=== PATIENT | female | born 1955 | race African-American/Black ===

== ENCOUNTER 2024-05-26 11:23 | Outpatient (CLI) | payer MEDICARE, MEDICAID, SELFPAY ==
--- NOTE | ~2024-05-26 | XR_ITS ---
XR abdomen/kub 1V Ordering provider: Cathy Washington, BIOMEDICAL INSTRUMENT TECHNICIAN History: . RIGHT URETERAL STONE . Comparison: None. FINDINGS: BOWEL: Nonobstructive bowel gas pattern. ORGANOMEGALY: None. SIGNIFICANT PATHOLOGIC CALCIFICATIONS: Right paraspinal calcification seen which may be a ureteric st one. OTHER: No free air is seen under the diaphragm. Degenerative changes of the spine. Bilateral hip osteoarthritic changes. IMPRESSION: NO ACUTE ABDOMINAL FINDINGS. Calcification in the right paraspinal area which may be a stone. Reviewed, dictated and finalized at location A.
== END 2024-05-26 11:24 | disposition home or self-care (01) ==
PROVIDERS: PCP Internal Medicine Infectious Disease; Visit Provider Nurse Practitioner Family
DX: N20.1 Calculus of ureter (principal); M61.9 Calcification and ossification of muscle, unspecified
CPT/HCPCS: 74018

== ENCOUNTER 2024-06-06 10:49 | Outpatient (CLI) | payer MEDICARE, MEDICAID, SELFPAY ==
--- NOTE | 2024-06-06 10:57 | ECG_ITS ---
Test Date: 2024-06-06 11:15:09 Measurements Intervals [place] Rate: 69 P: 34 WA: 176 QRS: 7 QRSD: 77 T: 32 QT: 378 QTc: 407 Interpretive Statements SINUS RHYTHM CONSIDER INFERIOR INFARCT, AGE INDETERMINATE BASELINE ARTIFACT- I, III, AVR, AVL, AVF ABNORMAL ECG No previous ECG available for comparison Electronically Signed On 06-06-2024 11:37:04 BREAKER TABLE WORKER by Tad Virk D.O.
[2024-06-06 12:18] LABS: Hematocrit 31.9 % (37.0-47.0); Hemoglobin 10.2 g/dL (12.0-15.0)
[2024-06-06 12:30] LABS: Prothrombin Time 13.4 Seconds (11.1-14.7)
[2024-06-06 12:31] LABS: Partial Thromboplastin Time 29.1 Seconds (22.3-36.8)
[2024-06-06 12:35] LABS: Anion Gap 7 mmol/L (4-12); Blood Urea Nitrogen 20 mg/dL (7-17); Calcium 8.9 mg/dL (8.4-10.2); Carbon Dioxide 30 mmol/L (22-30); Chloride 102 mmol/L (98-107); Estimated Glomerular Filt Rate 49; Glucose 81 mg/dL (65-110); Potassium 4.6 mmol/L (3.4-5.0); Sodium 139 mmol/L (137-145)
== END 2024-06-06 10:50 | disposition home or self-care (01) ==
LOC: ANHSURGERY 10:56
PROVIDERS: Anesthesiology; PCP Internal Medicine Infectious Disease; Visit Provider Urology
DX: Z01.818 Encounter for other preprocedural examination (principal); N20.1 Calculus of ureter; D64.9 Anemia, unspecified; I25.10 Atherosclerotic heart disease of native coronary artery without angina pectoris; Z87.891 Personal history of nicotine dependence; E10.22 Type 1 diabetes mellitus with diabetic chronic kidney disease
CPT/HCPCS: 36415; 80048; 85014; 85018; 85610; 85730; 87086; 93005

== ENCOUNTER 2024-06-10 02:03 | Day surgery (SDC) | payer MEDICARE, MEDICAID, SELFPAY ==
[2024-06-02 15:46] VITALS: BMI 30.2
--- NOTE | 2024-06-02 16:04 | PC.NURSE ---
Report to the Outpatient Waiting Room, entrance under the green pavilion located off [facility], at time __06:00am___on date _06/10/24 . Planned Procedure Time: _07:30am .? Time changes happen often and if your time is changed the preop area will call you the afternoon before. - You and your visitor will be asked to self-screen and do not enter if you have any COVID symptoms. Please call surgeon if you need to reschedule. - A mask is optional within the hospital at this time. Patients may have clear liquids (water, carbonated beverages, clear teas, apple juice) until 3 hours prior to surgery with a maximum of 20 ounces. - No food from midnight until time of surgery and no smoking (0430am) - Take only the following medications with a SIP of water on the morning of surgery: _Tylenol w Codeine if needed DO NOT STOP ANY OF YOUR OTHER PRESCRIPTION MEDICATIONS PRIOR TO SURGERY EXCEPT THE FOLLOWING Medications to discontinue per physician Hold Aspirin and the Plavix for [address] Shore Date to take last dose__06/01/24 Hold all vitamins and supplements 3 days prior per Anesthesia. Date to take last dose- 06/06/24 Please no make-up, nail arabic, hairspray, perfume, deodorant, or body powder the day of surgery.? No jewelry (including any body piercings) or valuables the day of surgery, leave them at home.? Please take a shower or bath the night before, or the morning of, surgery with an antibacterial soap.? Wear comfortable, loose fitting clothing.? - Jewelry must be removed prior to entering the operating room.? Rings and piercings that are not removed may be cut off. - The hospital will not accept responsibility for valuables.? - Please leave all valuables, including medications, at home the day of surgery. If you are going home after surgery, a licensed batch mixing truck driver must drive you home.? - NO public transportation without another adult if you receive anesthesia. - We recommend that an adult stay with you for 24 hours following discharge. - We also recommend that you do not drive, make important decision, drink alcoholic beverages, or take any drugs that were not prescribed by your health care provider for at least 24 hours after your discharge time. Follow any additional instructions given to you from your surgeon. Telephone instructions given to __Patient and asked if any additional questions and then verbalized understanding. Patient advised to call surgeon office or pre surgery nurse liaison [phone] if any additional questions.
--- NOTE | 2024-06-09 12:39 | P.HP_ITS ---
History of Present Illness History of Present Illness Consent: Risks, benefits, and alternatives have been discussed and questions answered. Patient agrees to proceed with procedure. Chief complaint: right ureteral stone Narrative: Belle Rivera is a 68 year old female Recently underwent evaluation for sterile pyuria. CT abd/pelvis wo contrast revealed a 1cm right renal calculus without other identifiable upper tract pathology Review of Systems Review of Systems: All systems reviewed & are unremarkable except as noted in HPI and below PMFSH Social History Social History Smoking packs per day: 2 Smoking cigarettes per day: 40.0 Years smoked: 30 Smoking pack-years: 60.00 Smoking status: Former smoker Smoking end date: 08/03/15 Substance use: never Living arrangements: with family Spiritual care concerns: No Meds Home Medications and Allergies Home Medications Medication Instructions Recorded Confirmed Type acetaminophen 300 mg-codeine 30 mg 1 tablet PO PRN PRN Pain 06/02/24 06/02/24 History tablet aspirin 81 mg tablet,delayed 81 mg PO HS 06/02/24 06/02/24 History release atorvastatin 20 mg tablet 20 mg PO HS 06/02/24 06/02/24 History chlorthalidone 25 mg tablet 12.5 mg PO HS 06/02/24 06/02/24 History clopidogrel 75 mg tablet 75 mg PO HS 06/02/24 06/02/24 History dapagliflozin propanediol 10 mg 10 mg PO HS 06/02/24 06/02/24 History tablet (Farxiga) diclofenac sodium 0.1 % eye drops 1 drp ophthalmic (eye) TID 06/02/24 06/02/24 History ferrous sulfate 324 mg (65 mg 324 mg PO HS 06/02/24 06/02/24 History iron) tablet,delayed release metformin 500 mg tablet 500 mg PO BID 06/02/24 06/02/24 History metoprolol succinate 25 mg 25 mg PO HS 06/02/24 06/02/24 History tablet,extended release 24 hr pantoprazole 40 mg tablet,delayed 40 mg PO DAILY 06/02/24 06/02/24 History release semaglutide 1 mg/dose (4 mg/3 mL) 1 mg subcut WEEKLY 06/02/24 06/02/24 History subcutaneous pen injector (Ozempic) vit D3-folic acid-vit B2-B6-B12 1 tablet PO HS 06/02/24 06/02/24 History 2,000 unit-800 mcg-0.32 mg tablet Allergies Allergy/AdvReac Type Severity Reaction Status Date / Time No Known Allergies Allergy Mild Verified 06/02/24 15:32 Exam Const: General: no acute distress Resp: Effort & Inspection: normal respiratory effort GI: Inspection: non-distended GI Palp: No abdominal tenderness and No Guarding due to palpation present (GI) Auscultation: normal bowel sounds Assessment and Plan Assessment and plan (1) Right renal stone: Code(s): N20.0 - Calculus of kidney Status: Acute Assessment and Plan: * Cystoscopy, right ureteral stent placement, right ESWL
[2024-06-10] VITALS (8 sets, daily range): BP systolic 136–168; BP diastolic 51–99; PULSE 67–86; RESP 12–18; TEMP 36.1–36.3; O2SAT 98–100; BMI 30.4
--- NOTE | ~2024-06-10 | XR_ITS ---
Supine and upright views of the abdomen Clinical history: Lithotripsy COMPARISON: 05/26/2024 Findings: Bowel gas pattern is nonspecific. No evidence for obstruction or free air. Stable 12 mm ovo id calcification in the right mid abdomen at the level of L5. Additional calcified pelvic phleboliths are present. Osseous structures are intact. Impression: Stable possible 12 mm right ureteral stone versus other calcification. Reviewed, dictated and finalized at location . LY MANAGER Impression: Stable possible 12 mm right ureteral stone versus other calcification.
[2024-06-10 06:30] LABS: Glucose Point of Care 61 mg/dl (65-105)
[2024-06-10] MEDS: LACTATED RINGERS 1,000 ML 30 ML IV CONT (06:30)
[2024-06-10] MEDS: DEXTROSE 50% 25 GM/50 ML SYRINGE IV PUSH (06:40)
--- NOTE | 2024-06-10 06:41 | WPDHPUPDATE1 ---
History and Physical Update Update Date/Time: 06/10/24 06:41 History and Physical has been reviewed, including an updated exam of the patient. There are NO changes in the patient's condition. Risks, benefits, and alternatives have been discussed and questions answered. Patient agrees to proceed with procedure.
--- NOTE | 2024-06-10 06:42 | WPDHPUPDATE1 ---
History and Physical Update Update Date/Time: 06/10/24 06:42 History and Physical has been reviewed, including an updated exam of the patient. There are NO changes in the patient's condition. Risks, benefits, and alternatives have been discussed and questions answered. Patient agrees to proceed with procedure.
--- NOTE | 2024-06-10 06:53 | P.PNAN_ITS ---
Anes - Initial Pre Proc Eval Procedure: Operation Date: 06/10/24 07:30 Proposed Procedures p Right Extracorporeal Shock Wave Lithotripsy, - Ziyad Shore MD s Cystoscopy with Right Stent Insertion - Ziyad Shore MD Date/Time: 06/10/24 06:53 Surgeon: Ziyad Shore MD Pre Op Diagnosis: right ureteral stone Patient Data Age: 68 Gender: F Height: 1.68 m Weight: 85 kg Allergies Allergy/AdvReac Type Severity Reaction Status Date / Time No Known Allergies Allergy Mild Verified 06/02/24 15:32 Home Medications Medication Instructions Recorded Confirmed Type acetaminophen 300 mg-codeine 30 mg 1 tablet PO PRN PRN Pain 06/02/24 06/02/24 History tablet aspirin 81 mg tablet,delayed 81 mg PO HS 06/02/24 06/02/24 History release atorvastatin 20 mg tablet 20 mg PO HS 06/02/24 06/02/24 History chlorthalidone 25 mg tablet 12.5 mg PO HS 06/02/24 06/02/24 History clopidogrel 75 mg tablet 75 mg PO HS 06/02/24 06/02/24 History dapagliflozin propanediol 10 mg 10 mg PO HS 06/02/24 06/02/24 History tablet (Farxiga) diclofenac sodium 0.1 % eye drops 1 drp ophthalmic (eye) TID 06/02/24 06/02/24 History ferrous sulfate 324 mg (65 mg 324 mg PO HS 06/02/24 06/02/24 History iron) tablet,delayed release metformin 500 mg tablet 500 mg PO BID 06/02/24 06/02/24 History metoprolol succinate 25 mg 25 mg PO HS 06/02/24 06/02/24 History tablet,extended release 24 hr pantoprazole 40 mg tablet,delayed 40 mg PO DAILY 06/02/24 06/02/24 History release semaglutide 1 mg/dose (4 mg/3 mL) 1 mg subcut WEEKLY 06/02/24 06/02/24 History subcutaneous pen injector (Ozempic) vit D3-folic acid-vit B2-B6-B12 1 tablet PO HS 06/02/24 06/02/24 History 2,000 unit-800 mcg-0.32 mg tablet Laboratory Tests 06/10/24 06:27 POC Capillary Glucose 61 L mg/dl (65-105) Patient hx anesthesia problems: none Family hx anesthesia problems: none Results Review: All pre-operative results and documents have been reviewed as part of the pre- operative evaluation. PENDING SALE TO [facility] Social History Social History Smoking packs per day: 2 Smoking cigarettes per day: 40.0 Years smoked: 30 Smoking pack-years: 60.00 Smoking status: Former smoker Smoking end date: 08/03/15 Substance use: never Living arrangements: with family Spiritual care concerns: No Anes - Eval Final PreProcedure Day of Procedure 06/10/24 06:53 Patient weight: obese Heart: regular rate and rhythm Lungs: clear to auscultation Airway: Mallampati scale class II Neurological: alert and oriented Last oral intake: >/= 8 hours ASA classification: III Emergent: no Anesthetic plan: proceed Anesthesia type and monitoring: general LMA and standard monitoring Results Review: All pre-operative results and documents have been reviewed as part of the pre- operative evaluation. Informed Consent: The patient's anesthetic plan and its attendant risks and benefits were discussed with the patient/family/POA. Questions were solicited and answers provided to the satisfaction of the patient/family/POA.
[2024-06-10 07:10] LABS: Glucose Point of Care 110 mg/dl (65-105)
[2024-06-10] MEDS: ceFAZolin 2 GM/D5W 50 ML 2 GM/50 ML BAG IVPB (07:25)
[2024-06-10] MEDS: LIDOCAINE HCL 2% GEL UROJET 10 ML PKG MUCOUS MEM (07:59)
[2024-06-10 08:41] LABS: Glucose Point of Care 76 mg/dl (65-105)
--- NOTE | 2024-06-10 08:44 | P.OP_ITS ---
Procedure Note - Detailed Date of Procedure 06/10/24 Pre-op Diagnosis Right ureteral stone Post-op Diagnosis Same Procedure Performed Cystoscopy, right ureteral stent placement, right ESWL Surgeon Ziyad Shore MD Anesthesia General Description of Procedure The patient was brought to the operative suite where she was placed in the frog- legged position on the Dornier lithotripter table. Flexible cystoscopy was undertaken with a 16F flexible cystoscopy. Her urethra and bladder neck were endoscopically normal. The bladder mucosa was normal and there was a single, orthotopic ureteral orifice bilaterally. A 0.035 glidewire was advanced into the right renal pelvis under fluoroscopy. A 4.8F J-J ureteral stent was positioned with the proximal coil in the renal pelvis and the distal coil in the bladder. The patient was then repositioned in the supine position and the focal point of the lithotriptor was placed at a 1cm right mid-ureteral calculus. A total of 3000 shocks were delivered at a power setting of 6. There appeared to be good fragmentation of the stone. The patient tolerated the procedure well and was taken to the recovery room in good condition. Pathology None sent Complications No immediate complications Condition Stable Disposition PACU
== END 2024-06-10 10:15 | disposition home or self-care (01) ==
PROVIDERS: PCP Internal Medicine Infectious Disease; Visit Provider Urology
PROC: (CPT 50590; principal; 2024-06-10 07:30)
PROC: (CPT 52310; 2024-06-10 07:30)
DX: N20.1 Calculus of ureter (principal); E66.9 Obesity, unspecified; Z68.30 Body mass index [BMI] 30.0-30.9, adult; Z79.82 Long term (current) use of aspirin; Z79.02 Long term (current) use of antithrombotics/antiplatelets; Z79.84 Long term (current) use of oral hypoglycemic drugs; Z79.85 Long-term (current) use of injectable non-insulin antidiabetic drugs; Z87.891 Personal history of nicotine dependence
CPT/HCPCS: 52332; 50590; 74018; 82948; C2617; J0690; J2003; J2405; J2704; J3010; J7120

== ENCOUNTER 2024-06-21 14:47 | Outpatient (CLI) | payer MEDICARE, MEDICAID, SELFPAY ==
--- NOTE | ~2024-06-21 | XR_ITS ---
EXAMINATION: XR abdomen/kub 1V DATE: 06/21/2024 14:58 INDICATION: Calculus of kidney. TECHNIQUE: A supine view of the abdomen on 2 radiographs was obtained. COMPARISON: Abdomen radiographs 06/10/2024 FINDINGS: There are no dilated loops of bowel. There is a right internal ureteral stent in expected p osition. There are surgical clips in the upper abdomen. The kidneys are obscured by bowel. There are phleboliths in the pelvis. IMPRESSION: 1. No visible urolithiasis. Reviewed, dictated and finalized at location A. SING ROOM ATTENDANT IMPRESSION: 1. No visible urolithiasis.
== END 2024-06-21 14:48 | disposition home or self-care (01) ==
PROVIDERS: PCP Internal Medicine Infectious Disease; Visit Provider Urology
DX: N20.1 Calculus of ureter (principal); Z96.0 Presence of urogenital implants; N20.0 Calculus of kidney
CPT/HCPCS: 74018

== ENCOUNTER 2024-07-06 10:27 | Outpatient (CLI) | payer MEDICARE, MEDICAID, SELFPAY ==
--- NOTE | ~2024-07-06 | XR_ITS ---
XR abdomen/kub 1V Ordering provider: Ziyad Shore MD History: . RT uretal stone . Comparison: June 21, 2024 FINDINGS: BOWEL: Nonobstructive bowel gas pattern. ORGANOMEGALY: None. SIGNIFICANT PATHOLOGIC CALCIFICATIONS: Calcific shadow seen in the right paraspinal area unchanged fr om previous examination. Previously seen double-J stent is removed. OTHER: No free air is seen under the diaphragm. Degenerative changes of the spine. Mild osteoarthriti c changes of both hips. IMPRESSION: NO ACUTE ABDOMINAL FINDINGS. Right paraspinal calcification unchanged from previous examination. Status post removal of the double -J stent. Reviewed, dictated and finalized at location A. ER MAN IMPRESSION: NO ACUTE ABDOMINAL FINDINGS. Right paraspinal calcification unchanged from previous examination. Status post removal of the double-J stent.
== END 2024-07-06 10:28 | disposition home or self-care (01) ==
PROVIDERS: PCP Internal Medicine Infectious Disease; Visit Provider Urology
DX: N20.1 Calculus of ureter (principal)
CPT/HCPCS: 74018

== ENCOUNTER 2025-01-03 08:26 | Outpatient (CLI) | payer MEDICARE, MEDICAID, SELFPAY ==
--- NOTE | ~2025-01-03 | MM_ITS ---
MM SCREENING LEORA BI W CON INDICATION: Asymptomatic, referred for screening mammogram COMPARISON: None available TECHNIQUE: Full field digital CC, MLO views of Both breasts were obtained with computer-aided detect ion to assist in interpretation of the study. FINDINGS: There are scattered areas of fibroglandular density. There is an asymmetry seen on the cc view in the retroareolar left breast centered at 8.2 cm posterio r to the nipple. No other focal dominant mass, architectural distortion, or suspicious microcalcifications are identif ied. IMPRESSION: 1. Left breast Asymmetry. 2. No evidence of malignancy in the Right breast. RECOMMENDATION: Left breast Diagnostic mammogram with true lateral, appropriate spot compression views and an ultraso und if needed. BI-RADS 0, INCOMPLETE, NEEDS ADDITIONAL IMAGING EVALUATION Reviewed, dictated and finalized at location B. IMPRESSION: 1. Left breast Asymmetry. 2. No evidence of malignancy in the Right breast. RECOMMENDATION: Left breast Diagnostic mammogram with true lateral, appropriate spot compressio n views and an ultrasound if needed. BI-RADS 0, INCOMPLETE, NEEDS ADDITIONAL IMAGING EVALUATION
== END 2025-01-03 08:27 | disposition home or self-care (01) ==
LOC: MICIMG 08:26
PROVIDERS: PCP Internal Medicine Infectious Disease; Visit Provider Internal Medicine Infectious Disease
DX: Z12.31 Encounter for screening mammogram for malignant neoplasm of breast (principal); R92.8 Other abnormal and inconclusive findings on diagnostic imaging of breast
CPT/HCPCS: 77063; 77067

== ENCOUNTER 2025-04-05 08:02 | Outpatient (CLI) | payer MEDICARE, MEDICAID, SELFPAY ==
--- OUTSIDE RECORDS SUMMARY | 2006-09-30 06:06 | XMS_ITS | Continuity of Care Document ---
Author Organization [facility] [place] [address] [place] [address] [place] [address] Phone Care Team Providers Care Electrical Service Technician Name Role Phone Graham OD, Toni Unavailable Unavailable Procedures Procedure Date No Charge Contact Lens Check CL Replacement - Vistakon Disp W/BW Soft Tax - Medical No Charge Contact Lens Check Advance Directives Directive Yes / No Effective Date File Name No Information Encounters Encounter Description Practice Location Reason(s) For Visit Diagnoses Date Provider Providers Copied on Encounter Merged with [facility], [address] [place] [address] [address], [place], [place], [id number], tel:[phone] [facility] No Information 8-200 7 Graham OD Toni. [address], [place], [address], [place]. tel:[phone] Merged with [facility], [address] [place] [address] [address], [place], [place], [id number], tel:[phone] [facility] No Information 7-200 7 Graham OD Toni. [address] [facility] [address], [place], [address], [place]. tel:[phone] Family History Family Member Type Diagnosis Age At Onset No Information Payers Payer name Insurance type Covered republican ID Authoriza tion(s) No Information Social History Type Description Quantity Date Captured Comments Sex Female Smoking Status No Information Chief Complaint And Reason For Visit No Information Reason For Referral Reason For Referral No Information History Of Present Illness Encounter Date Complaint History Of Prese nt Illness No Information Functional Status Date Functional Assessmen t No Information Instructions Date Instruction Additional Infor mation No Information Assessments Type Assessment Date No Information Patient Care Teams Name Effective Dates (start - stop) Status Members No Information
--- OUTSIDE RECORDS SUMMARY | 2025-04-05 08:06 | XMS_ITS | Clinical Summary ---
Author Organization [facility] , [facility] Address [address] [facility] [address] [place] [address] Phone Care Team Providers Care Material Liaison Name Role Phone Unavailable Primary Care Provider Unavailabl e Allergies No known active allergies Medications ASPIRIN 81 PO Take 1 tablet by mouth 1 (one) time each day Active atorvastatin (LIPITOR) 20 MG tablet Comments: Patient Notes: TAKE 1 TABLET BY MOUTH DAILY Duration: 90 Active chlorthalidone 25 MG tablet Take 0.5 tablets by mouth 1 (one) time each day 05/05/2017 Active Cholecalciferol 50 MCG (2000 UT) capsule Take 1 capsule by mouth 1 (one) time each day 06/05/2020 Active clopidogrel (PLAVIX) 75 MG tablet Take 75 mg by mouth 1 (one) time each day Active ferrous sulfate 325 (65 Fe) MG tablet Take 1 tablet by mouth 1 (one) time each day Active metFORMIN (GLUCOPHAGE) 500 MG tablet Take 1 tablet by mouth 2 (two) times a day Active metoprolol succinate XL (TOPROL XL) 25 MG 24 hr tablet Take 0.5 tablets by mouth 1 (one) time each day 05/05/2017 Active nitroglycerin (NITROSTAT) 0.4 MG SL tablet Take 1 tablet by mouth Active pantoprazole (PROTONIX) 40 MG EC tablet Take 1 tablet by mouth 1 (one) time each day Active acetaminophen-co deine (TYLENOL #3) 300-30 MG per tablet Take 1 tablet by mouth 2 (two) times a day Active Dapagliflozin Propanediol (Farxiga) 10 MG tablet Take 10 mg by mouth 1 (one) time each day in the morning Active Semaglutide,0.25 or 0.5MG/DOS, (Ozempic, 0.25 or 0.5 MG/DOSE,) 2 MG/1.5ML solution pen-injector Inject 1 mg under the skin per week Active Active Problems Problem Noted Date Diagnosed Date Obstructive sleep apnea syndrome 11/01/2024 Personal history of kidney stones 07/12/2024 History of ureteral stent previously removed 05/2024 Chronic kidney disease stage 3B 02/28/2021 Degeneration of lumbar intervertebral disc 02/28 Dysthymia 02/28/2021 Hyperkalemia 02/28/2021 Osteoarthritis 02/28/2021 Type 2 diabetes mellitus without complication Vitamin D deficiency 02/28/2021 Coronary arteriosclerosis 09/16/2016 Overview (02/28/2021): CCM Enroll Essential hypertension 01/17/2014 Overview (02/28/2021): CCM Enroll Obesity 01/17/2014 Encounters Date Type Department Care Team Description 03/07/2025 10:45 AM CDT Office Visit [facility] [address] [facility] [address] [place] [address] Reinaldo Broderick MD Chronic kidney disease stage 3B (HCC) (Primary Dx); Type 2 diabetes mellitus without complication (HCC); Essential hypertension; Obesity, class 2; Primary generalized osteoarthritis; Degeneration of lumbar intervertebral disc; Coronary arteriosclerosis, not otherwise specified; Obstructive sleep apnea syndrome; Vitamin D deficiency, not otherwise specified 02/28/2025 Documentation Only [facility] [address] [address] Reinaldo Broderick MD from Last 3 Months Family History Medical History Relation Comments Hypertension Child Dementia Father Diabetes Father Hypertension Father Heart disease Mother Hypertension Mother Hypertension Sibling 1 Diabetes Sibling 2 Relation Status Comments Child Father Mother Sibling 1 Sibling 2 Social History Tobacco Use Types Packs/Day Years Used Date Smoking Tobacco: Former Smokeless Tobacco: Never Tobacco Cessation:Counseling Given: Not Answered Comments:Smoking History Info:Every day Alcohol Use Standard Drinks/Week Comments Not Currently 0 (1 standard drink = 0.6 oz pure alcohol) Alcoholic Drinks/day: Occasional social drink Comments Unknown Sex and Gender Information Value Date Recorded Sex Assigned at Not on file Legal Sex Female 2:49 PM EDT Gender Identity Not on file Sexual Orientation Not on file Last Filed Vital Signs Vital Sign Reading Time Taken Comments Blood Pressure 108/60 03/07/2025 10:37 AM CDT Pulse 81 03/07/2025 10:37 AM CDT Temperature 36.7 C (98 F) 03/07/2025 10:37 AM CDT Respiratory Rate 18 03/07/2025 10:37 AM CDT Oxygen Saturation 97% 03/07/2025 10:37 AM CDT Inhaled Oxygen Concentration - - Weight 81.4 kg (179 lb 8 oz) 03/07/2025 10:37 AM CDT Height 167.6 cm (5' 6) 12/01/2023 10:37 AM CDT Body Mass Index 28.97 12/01/2023 10:37 AM CDT Plan of Treatment Upcoming Encounters Date Type Department Care Team (Late st Contact Info) Description 07/11/2025 10:30 AM 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 [address] [facility] [address] [place] [address] Reinaldo Broderick MD [address] [facility] [address] [place] [address] Health Maintenance Due Date Last Done Comments Breast Cancer Screening 1955 Pneumococcal Vaccine: 50+ Years (1 of 2 - PCV) 1973 Colorectal Cancer Screening: Annual FOBT 11/12/2003 Colorectal Cancer Screening: Colonoscopy 11/12/2003 Colorectal Cancer Screening: Sigmoidoscopy 11/12/2003 Diabetes: Ophthalmology Exam 12/27/2020 Diabetes: Pedal Pulse Checked 12/27/2020 Diabetes: Sensory Foot Exam 12/27/2020 Diabetes: Visual Foot Exam 12/27/2020 Diabetes: Hemoglobin A1C 01/27/2025 025, 05/26/2024, 10/30/2023, Additional history exists Influenza Vaccine (#1) 2025 05/06/2018, 2017 Hepatitis B Vaccine Aged Out No longe r eligible based on patient's age to complete this topic Procedures Procedure Name Priority Date/Time Associated Diagnosis Comments EXT RESULT ENTRY Routine 02/27/2025 HEMOGLOBIN A1C Routine 10/27/2024 10:00 AM CDT from Last 3 Months or Most Recently Relevant to Health Maintenance Results * (ABNORMAL) EXT RESULT ENTRY (02/27/2025) WBC 7.7 3.3 - 10.0 10*3/ML Red Blood Cell Count 3.83 Hemoglobin 11.2(A) 12.0 - 16.0 Hematocrit 37.2 36.0 - 46.0 Platelets 327 150 - 399 10*3/UL MCV 97.0 82.0 - 108.0 Sodium 140 137 - 147 Potassium 5.3 3.4 - 5.5 Chloride 101.0 99.0 - 108.0 Carbon Dioxide 23 mmol/L Glucose 73 60 - 200 BUN 25(A) 4 - 21 mg/dL Creatinine 1.48(A) 0.50 - 1.10 mg/dL Albumin 4.2 3.5 - 5.0 g/dL Calcium 9.5 8.7 - 10.7 mg/dL Phosphorus, Serum 3.8 eGFR 38(L) (TSH) Thyroid Stimulating Hormone 0.96 02/27/2025 Historical Provider LAB BLOOD ORDERABLES Anny l Result * (ABNORMAL) Hemoglobin A1c (10/27/2024 10:00 AM CDT) Hemoglobin A1C 6.2(H) <5.7 % of total Hgb [facility] Comment: For someone without known diabetes, a hemoglobin A1c value between 5.7% and 6.4% is consistent with prediabetes and should be confirmed with a follow-up test. For someone with known diabetes, a value <7% indicates that their diabetes is well controlled. A1c targets should be individualized based on duration of diabetes, age, comorbid conditions, and other considerations. This assay result is consistent with an increased risk of diabetes. Currently, no consensus exists regarding use of hemoglobin A1c for diagnosis of diabetes for children. 10/27/2024 10:0 0 AM CDT 10/27/2024 10:02 AM CDT Narrative ZIA PERRY - 10/28/2024 10:54 AM CDT FASTING:YES FASTING: YES Resulting Agency Comment Performing Organization Information: Site ID: Name: [facility] Address: [address] [place] [address] Director: Neville Ron us Reinaldo Broderick MD LAB BLOOD ORDERABLES Final R esult [facility] [address] [place] [address] from Last 3 Months or Most Recently Relevant to Health Maintenance Insurance Medicaid [place] U[employer] Medicare
--- OUTSIDE RECORDS SUMMARY | 2025-04-05 08:06 | XMS_ITS | Encounter Summary ---
Author Organization [facility] [employer] [facility] Address Veronika MITCHLEL NIGEL [address] [address] Phone Care Team Providers Care Talent Development Consultant Name Role Phone Unavailable Primary Care Provider Unavailabl e Reason for Visit * Reason Comments Med Refill Encounter Details Date Type Department Care Team (Late st Contact Info) Description 02/17/[address] [facility] [address] [facility] [address] [place] [address] Reinaldo Broderick MD [address] [facility] [address] [place] [address] Social History Tobacco Use Types Packs/Day Years Used Date Smoking Tobacco: Former Smokeless Tobacco: Never Comments:Smoking History Inf o:Every day Alcohol Use Standard Drinks/Week Comments Not Currently 0 (1 standard drink = 0.6 oz pure alcohol) Alcoholic Drinks/day: Occasional social drink Comments Unknown Sex and Gender Information Value Date Recorded Sex Assigned at Not on file Legal Sex Female 2:49 PM EDT Gender Identity Not on file Sexual Orientation Not on file documented as of this encounter Plan of Treatment Upcoming Encounters Date Type Department Care Team (Late Contact Info) Description 07/11/2025 10:30 AM RESPIRATORY CARE PRACTITIONER Office Visit [facility] [address] [facility] [address] [place] [address] Reinaldo Broderick MD [address] [facility] [address] [place] [address] documented as of this encounter Visit Diagnoses Not on filedocumented in this encounter
--- NOTE | 2025-04-28 20:38 | WPDSLEEPSTUD ---
Sleep Study Date of Study: 04/05/25 Ordering Provider: Geo Murrell, Interpreting Physician: Brianna Siegel MD Sleep Study Type: Split Polysomnogram Height: 1.68 m Weight: 81.647 kg Body Mass Index: 29.0 Neck Circumference (inches): 14 [place]: 15 Reason for Sleep Study Hypersomnolence Sleep History Belle Rivera is a 69-year-old woman with excessive daytime sleepiness. she has a history of morbid obesity, had gastric bypass surgery in 2003. There is a family history of sleep disorders, her brother wear CPAP. She rarely awakens from sleep short of breath. She occasionally wakes at night with heartburn, belching or coughing.??She is not sure if she snores or hell loudly she snores. She always has trouble sleeping when she has a cold. She occasionally wakes up gasping for breath during the night. She occasionally has breathing problems at night. She occasionally sweats excessively at night. She occasionally notices her heart pounding or beating irregularly during the night. She frequently falls asleep during the day. She frequently falls asleep involuntarily, rarely falls asleep while driving. She does not report loss of muscle tone with strong emotion. She never feels paralyzed on waking or falling asleep. She occasionally experiences vivid dreams upon waking or falling asleep. She very often feels afraid of going to sleep. She rarely has nightmares. She never recalls her dreams. She rarely has thoughts racing through her mind. She occasionally feels sad or depressed. She rarely feels anxiety. She rarely notices parts of her body jerk. She rarely kicks during the night. She constantly feels crawling or aching feelings in her legs. She frequently feels leg pain at night. She never has morning jaw pain, nor does she grind her teeth at night. She constantly feels bothered by pain during the day, is occasionally awakened by pain during the night. She constantly wakes up feeling stiff in the morning, constantly wakes feeling sore or achy in the morning. She always awakens with pain in her neck, spine, or joints. Normal bedtime is 7:00 p.m., not sure how long it takes her to fall asleep but she does awaken 3-4 times during the night to go to the bathroom and while she is up may watch television or if it is late enough, she gets up for the rest of the day. Her normal wake time is 3:00 a.m.. She maintains the same schedule on weekends. She reports getting an average of 4 hours of sleep per night. she feels better in the afternoon compared to other times of day. Habits:??Tobacco: Former smoker Caffeine: yes, amount not recorded Alcohol: none Recreational substances: none [facility] Past Medical History Medical History (Updated 04/28/25 @ 21:06 by Brianna Siegel MD) Bilateral primary osteoarthritis of knee Lumbar radiculopathy PLMD (periodic limb movement disorder) CAD (coronary artery disease) [place] 2016 DM type 2 (diabetes mellitus, type 2) Hyperlipidemia Hypertension Depression Chronic kidney disease, stage 3 Surgical History Surgical History S/P KEL (total abdominal hysterectomy) 1979 History of carpal tunnel surgery 1997, bilateral History of shoulder surgery 1999, Right shoulder History of coronary artery stent placement 2022 History of cholecystectomy 1977 History of gastric bypass 2003 Social History Social History Smoking packs per day: 2 Smoking cigarettes per day: 40.0 Years smoked: 30 Smoking pack-years: 60.00 Smoking status: Former smoker Smoking end date: 08/03/15 Substance use: never Living arrangements: with family Spiritual care concerns: No Medications Home Medications ?Medication ?Instructions ?Recorded ?Confirmed ?Type acetaminophen 300 mg-codeine 30 mg 1 tablet PO PRN PRN Pain 06/02/24 06/02/24 History tablet aspirin 81 mg tablet,delayed 81 mg PO HS 06/02/24 06/02/24 History release Held on 06/10/24. Instructions: Resume on 06/12/24. atorvastatin 20 mg tablet 20 mg PO HS 06/02/24 06/02/24 History chlorthalidone 25 mg tablet 12.5 mg PO HS 06/02/24 06/02/24 History clopidogrel 75 mg tablet 75 mg PO HS 06/02/24 06/02/24 History Held on 06/10/24. Instructions: Resume on 06/12/24. dapagliflozin propanediol 10 mg 10 mg PO HS 06/02/24 06/02/24 History tablet (Farxiga) diclofenac sodium 0.1 % eye drops 1 drp ophthalmic (eye) TID 06/02/24 06/02/24 History ferrous sulfate 324 mg (65 mg 324 mg PO HS 06/02/24 06/02/24 History iron) tablet,delayed release metformin 500 mg tablet 500 mg PO BID 06/02/24 06/02/24 History metoprolol succinate 25 mg 25 mg PO HS 06/02/24 06/02/24 History tablet,extended release 24 hr pantoprazole 40 mg tablet,delayed 40 mg PO DAILY 06/02/24 06/02/24 History release semaglutide 1 mg/dose (4 mg/3 mL) 1 mg subcut WEEKLY 06/02/24 06/02/24 History subcutaneous pen injector (Ozempic) vit D3-folic acid-vit B2-B6-B12 1 tablet PO HS 06/02/24 06/02/24 History 2,000 unit-800 mcg-0.32 mg tablet hydrocodone 5 mg-acetaminophen 325 1 - 2 tablet PO Q6H PRN pain #20 06/10/24 Rx mg tablet tabs Sleep Procedure A split night polysomnogram using the ViroXis multi-channel system recorded the standard physiologic parameters including EEG, EOG, submentalis EMG, anterior tibialis EMG, EKG, body position, nasal and oral airflow using nasal pressure sensor and thermistor. Respiratory parameters of chest and abdominal movements were recorded with Respiratory Inductance Plethysmography belts. Oxygen saturation was recorded by pulse oximetry. Video monitoring was also performed. Sleep stages, periodic limb movements, and EEG arousals were scored in 30 second epochs according to the criteria of the AASM Scoring Manual. The Apnea-Hypopnea Index was calculated using CMS guidelines for definition of hypopnea while scoring respiratory events. No sleep aid was taken at the beginning of the study. After the baseline portion the patient met criteria for a titration with an AHI of 26.4 and desaturation to 85%. She used a small Resmed Airtouch F20 FFM fullface mask, initial pressure was CPAP 5 cm titrated to CPAP 7 cm. At 7 cm, patient spent 93.5 minutes in bed, 9 minutes awake, 59 minutes in non-REM and 25.5 minutes in REM. Sleep efficiency was 90.4%. The residual apnea-hypopnea index was 0. The lowest saturation was 96%. She had supine REM at this pressure. Sleep Architecture During the diagnostic portion of the study, the total recording time was 181.2 minutes. The total sleep time was 138.5 minutes. Sleep latency was 1.7 minutes. REM latency was 22.0 minutes. Sleep Efficiency was 76.4%. The patient had 19 awakenings for an awakening index of 8.2. Wake after sleep onset time was 41.0 minutes. The patient spent 13.0 minutes, 9.4% of total sleep time in Stage N1. The patient spent 94.5 minutes, 68.2% in Stage N2. The patient spent 0.0 minutes, 0.0% in Stage N3. The patient spent 31.0 minutes, 22.4% in Stage REM sleep. At 12:17:14 AM the patient was placed on PAP treatment and was titrated at pressures ranging from 5* cm/H20 with supplemental oxygen at - up to 7* cm/H20 with supplemental oxygen at -. During the treatment portion of the study, the total recording time was 326.7 minutes. The total sleep time was 276.5 minutes. Sleep latency was 3.0 minutes. REM latency was 88.0 minutes. Sleep Efficiency was 84.6%. Wake after Sleep Onset time was 47.5 minutes. The patient spent 25.5 minutes, 9.2% of total sleep time in Stage N1. The patient spent 180.0 minutes, 65.1% in Stage N2. The patient spent 0.0 minutes, 0.0% in Stage N3. The patient spent 71.0 minutes, 25.7% in Stage REM. Respiratory Analysis *During the diagnostic portion of the study, the patient had 57 hypopneas, 2 obstructive apneas, -nomixed apneas, and 2 central apneas for an overall Apnea Hypopnea Index of 26.4 events per hour. The REM Apnea Hypopnea Index was 50.3. The NREM Apnea Hypopnea Index was 23.4. The patient had a Central Apnea Hypopnea Index of 0.9. There were no Respiratory Effort Related Arousals. The Respiratory Disturbance Index is 35.1 events per hour. There was no evidence of Oscar-Rendon Respirations. During the treatment portion of the study, the patient had 4 hypopneas, no obstructive apneas, 1 mixed apnea, and 6 central apneas for an overall Apnea Hypopnea Index of 2.4 events per hour. The REM Apnea Hypopnea Index was 9.3. The NREM Apnea Hypopnea Index was 0. The patient had a Central Apnea Hypopnea Index of 1.3. There were no Respiratory Effort Related Arousals. The Respiratory Disturbance Index is 3.0 events per hour. There was no evidence of Oscar-Rendon Respirations. Arousals During the diagnostic portion of the study, there were a total of 64 arousals for an arousal index of 27.7. There were 23 respiratory arousals for an index of 10.0. There were 24 periodic limb movement arousals for an index of 10.4. There were 10 isolated limb movement arousals for an index of 4.3. There were 6 spontaneous arousals for an index of 2.6. During the treatment portion of the study, there were a total of 66 arousals for an index of 14.3. There were 4 respiratory arousals for an index of 0.9. There were 46 periodic limb movement arousals for an index of 10.0. There were 6 isolated limb movement arousals for an index of 1.3. There were 10 spontaneous arousals for an index of 2.2. Periodic Limb Movements During the diagnostic portion of the study, the patient had 24 isolated limb movements with an index of 10.4. The patient had 121 periodic limb movements with an index of 52.4. The patient had a total of 145 limb movements with a total limb movement index of 62.8. During the treatment portion of the study, the patient had 45 isolated limb movements with an index of 9.8. The patient had 272 periodic limb movements with an index of 59.0. The patient had a total of 317 limb movements with a total limb movement index of 68.8. Oximetry Data During the diagnostic portion of the study, the patient had an average oxygen saturation of 95% in wake with a minimum oxygen saturation of 88%and a maximum oxygen saturation of 99% The patient had an average oxygen saturation of 93.5% in sleep with a minimum oxygen saturation of 85% and a maximum oxygen saturation of 98%. The patient had 82 oxygen desaturations resulting in an Oxygen Desaturation Index of 35.5. The patient spent 2.5 minutes, 1.4% of total sleep time with an oxygen saturation less than 88%. During the treatment portion of the study, the patient had an average oxygen saturation of 97.2% in wake with a minimum oxygen saturation of 92% and a maximum oxygen saturation of 100%. The patient had an average oxygen saturation of 96.1% in sleep with a minimum oxygen saturation of 89% and a maximum oxygen saturation of 99%. The patient had 12 oxygen desaturations resulting in an Oxygen Desaturation Index of 2.6. The patient spent no time with an oxygen saturation less than 88%. Snoring Profile During the diagnostic portion, snoring was mild, eliminated at the optimal pressure. Cardiac Profile During the diagnostic portion of the study, the EKG showed normal sinus rhythm. The average pulse rate was 77 bpm, minimum pulse rate was 61 bpm, and the maximum pulse rate was 99 bpm. No arrhythmias noted. During the treatment portion of the study, the EKG showed normal sinus rhythm, average pulse rate was 75 bpm, minimum pulse rate was 64 bpm, and the maximum pulse rate was 95 bpm. No arrhythmias noted. EEG Profile Unremarkable, no evidence of seizures. Assessment and Plan Assessment and Plan (1) Obstructive sleep apnea: Code(s): G47.33 - Obstructive sleep apnea (adult) (pediatric) Status: Acute Assessment and Plan: This split night sleep study on 04/05/2025 showed moderate obstructive sleep apnea, apnea-hypopnea index is 26.4 with desaturation 85% successfully treated using a medium ResMed AirTouch F20 fullface mask and CPAP 7 cm. At 7 cm, patient spent 93.5 minutes in bed, 9 minutes awake, 59 minutes in non-REM and 25.5 minutes in REM. Sleep efficiency was 90.4%. The residual apnea-hypopnea index was 0. The lowest saturation was 96%. She had supine REM at this pressure. The patient should be prescribed this ResMed equipment as well as tubing, filters and reservoir. This should be used with all episodes of sleep. Compliance should be reviewed within 31-90 days of starting therapy for usage greater than 4 hours per night greater than 70% of the nights. The patient should be asked about symptoms such as excessive daytime sleepiness, quality of sleep, decreased nocturia, increased mental functioning such as memory, mood, and concentration. (2) PLMD (periodic limb movement disorder): Code(s): G47.61 - Periodic limb movement disorder Status: Acute Assessment and Plan: The patient had a significantly elevated number of limb movements during the study. Her periodic limb movement index is 68.8. The limb movement arousal index was 10 on both portions of the study baseline and treatment. Her sleep history indicates that she has problems with constant uncomfortable feelings in her legs at night. Treatment with PAP therapy is expected to improve some of these limb movements. Ferritin level is indicated to exclude iron deficiency anemia as a contributing factor. Ferritin should be 75 ng/mL or greater. If ferritin is below this, iron supplementation should be given to achieve ferritin of 75 ng/mL. There are nonpharmacologic methods to treat limb movements including daily exercise, stretching calf muscles before bed, avoiding excessive amounts of caffeine and alcohol, vitamin B supplementation, magnesium lotion massaged into legs before bed, and use of a weighted blanket. Pharmacologic therapy is very effective for restless legs syndrome and limb movements during sleep and may include [id number] voltage-gated calcium channel ligands such as gabapentin which is preferable to dopaminergic agents which can have augmentation. Other treatments can include opioids and benzodiazepines. Data The data obtained during this sleep study is adequate for interpretation. Certification This sleep study has been reviewed by a board certified sleep medicine physician.
[2025-05-01 20:51] VITALS: BMI 29.0
== END 2025-04-06 06:33 | disposition home or self-care (01) ==
LOC: ANHCSM 08:03
PROVIDERS: PCP Internal Medicine Infectious Disease; Visit Provider Internal Medicine Pulmonary Disease
DX: G47.33 Obstructive sleep apnea (adult) (pediatric) (principal)
CPT/HCPCS: 95811

== ENCOUNTER 2025-07-23 12:23 | Emergency (ER) | payer OTHER, SELFPAY ==
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
[2025-07-23 12:28] VITALS: BP 136/77; PULSE 89; RESP 17; TEMP 36.4; O2SAT 99
--- OUTSIDE RECORDS SUMMARY | 2025-07-23 14:25 | XMS_ITS | Data Portability ---
Author Organization [facility] NAIM[facility]ie Matthews [facility] Address 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 Plan of Treatment Reminders Order Date Submit Date Provider Last Modified By Organization Details Last Modified Time Details Appointments ANY 15 2025 10:45A Warren Salguero MD Not available Not available Not available Lab HbA1c (hemogl obin A1c), blood 2024 025 [facility], [address] [place] [address], [facility] [address], [place], [address], 05/29/2025 11:42:48 lipid panel, serum 2024 025 [facility], [address] [place] [address], [facility] [address], [place], [address], 05/29/2025 11:42:49 albumin /creati nine, mass ratio, urine 2024 025 [email or web address], [address] [place] [address], [address], [place], [address], 07/13/2025 14:37:41 TSH, ultra-s ensitiv e, serum 2024 025 [facility], [address] [place] [address], [address], [place], [address], 02/28/2025 11:12:23 CBC 2024 025 [facility], [address], [address], [place], [address], 02/28/2025 11:12:25 renal functio n panel, serum 2024 025 [facility], [address], [address], [place], [address], 02/28/2025 11:12:19 urinaly sis macro (dipsti ck) panel, urine 2024 025 [facility], [address], [address], [place], [address], 02/28/2025 11:12:21 HbA1c (hemogl obin A1c), blood 2024 025 [facility], [address], [address], [place], [address], 02/09/2025 23:50:27 lipid panel, serum 2024 025 [facility], [address], [address], [place], [address], 02/09/2025 23:50:26 urinaly sis, dipstic k 2023 024 lauren In-Office Order, Internal Use Only DO Not Attach Compendium DO Not Attach Compendium, Do Not Delete/merge, [id number] 04/08/2024 14:30:13 urinaly sis complet e, reflex culture 2023 024 [facility], [address], [address], [place], [address], 04/13/2024 06:20:41 CBC 2023 024 [facility], [address] [place] [address], [address], [place], [address], 03/10/2024 06:20:00 basic metabol ic 1998 panel, serum or plasma 2023 024 [facility], [address] [place] [address], [address], [place], [address], 03/10/2024 06:19:59 HbA1c (hemogl obin A1c), blood 2023 024 [facility], [address] [place] [address], [address], [place], [address], 03/10/2024 06:19:59 lipid panel, serum 2023 024 [facility], [address] [place] [address], [address], [place], [address], 03/10/2024 06:19:58 Referral sleep medicin e referra l 2024 025 [facility] Murrell MD, [address] [place], [address], 06/28/2025 09:11:[address]i [address] referra l 2023 024 [facility], [address] [place], [address], 04/08/2024 16:55:37 Procedures None recorde d. Surgeries None recorde d. Imaging XR, cervica l spine 2024 025 [facility], [address] [place] [address], [place], [address], 06/27/2025 14:15:27 MAMMO, screeni ng, digital , bilater al 2024 025 [facility] [address] [place], [address], 01/03/2025 17:28:31 CT, abdomen + pelvis, w/o contras t - Painles s, gross hematur ia 2023 024 [facility]), [address] [place], [address], 04/14/2024 08:26:52 Medication Orders cyclobe nzaprin e 10 mg tablet 2024 025 [id number], [address], [id number], 05/29/2025 11:40:18 sulfame thoxazo le 400 mg-trim ethopri m 80 mg tablet 2023 024 [id number], [address], [place], [id number], 05/10/2024 17:34:24 Patient TargetsNo targets recorded. Patient Instructions Encounter Date Encounter Id Patient Instructions Last Modified By Organization Details Last Modified Time 01/18/2024 [id number] Labs PT Follow u p in 3 months (30 minutes) oajao Not available 01/18/2024 13:03:38 04/08/2024 [id number] blood in the urine: care instructions oajao Not available 04/08/2024 14:30:[address] Follo w up as scheduled on 04/19/2024 oajao Not available 04/08/2024 12:04:20 08/15/2024 [id number] mammogram: about this test oajao Not available 08/15/2024 15:59:51 MMG Labs in October, Sleep hygeine Follow up in 5 months and PRN oajao Not available 08/15/2024 16:05:33 02/27/2025 [id number] A healthy lifestyle: care instructions oajao Not available 02/27/2025 11:29:50 sleep apnea: car e instructions oajao Not available 02/27/2025 11:29:01 Labs Sleep medicine MAWV in 8 weeks oajao Not available 02/27/2025 11:50:37 05/29/2025 [id number] neck pain: care instructions oajao Not available 05/29/2025 11:40:05 advance care planning: care instructions oajao Not available 05/29/2025 12:28:09 preventing falls : care instructions oajao Not available 05/29/2025 12:28:09 Quitting Tobacco : Care Instructions oajao Not available 05/29/2025 12:28:09 Medicare Wellnes s Preventive Checklist oajao Not available 05/29/2025 12:28:09 eating healthy foods: care instructions oajao Not available 05/29/2025 12:28:09 AD8 Dementia Screening Interview oajao Not available 05/29/2025 12:28:09 Labs Xrays Follo w up in 5 months and PRN oajao Not available 05/29/2025 11:42:52 Reason for Referral Physical Therapist Referral for Chronic low back pain Referring Physician: Darlene Salguero, Internal Medicine, Encounter Date: 01/18/2024 Sleep Medicine Referral for Obstructive sleep apnea syndrome Severe GEORGINA Referring Physician: Darlene Salguero Internal Medicine, Encounter Date: 02/27/2025 Results Created Date Observation Date Name Description Value Unit Range Abnormal Flag Note LastModifiedBy Organization Detail LastModifiedTime 03/09/20 24 03/10/2024 LIPID PANEL cholesterol, total 91 mg/dL 100-19 9 below low normal Not Available [facility] ([facility]) [address] [facility], [place], [address], 03/10/2024 06:19:58 03/09/20 24 03/10/2024 LIPID PANEL triglyceride s 136 mg/dL 0-149 Not Available [facility] ([facility]) [address] [facility], [place], [address], 03/10/2024 06:19:58 03/09/20 24 03/10/2024 LIPID PANEL HDL cholesterol 37 mg/dL >39 below low normal Not Available [facility] ([facility]) [address] [place], [address], 03/10/2024 06:19:58 03/09/20 24 03/10/2024 LIPID PANEL VLDL cholesterol jovany 24 mg/dL 5-40 Not Available [facility] ([facility]) [address] [place], [address], 03/10/2024 06:19:58 03/09/20 24 03/10/2024 LIPID PANEL LDL chol calc ([facility]) 30 mg/dL 0-99 Not Available [facility] ([facility]) [address] [place], [address], 03/10/2024 06:19:58 03/09/20 24 03/10/2024 BASIC METAB OLIC PANEL (7) glucose 82 mg/dL 70-99 Not Available [facility] ([facility]) [address] [place], [address], 03/10/2024 06:19:58 03/09/20 24 03/10/2024 BASIC METAB OLIC PANEL (7) BUN 19 mg/dL 8-27 Not Available [facility] ([facility]) [address] [place], [address], 03/10/2024 06:19:58 03/09/20 24 03/10/2024 BASIC METAB OLIC PANEL (7) creatinine 1.48 mg/dL 0.57-1 .00 above high normal Not Available [facility] ([facility]) [address] [place], [address], 03/10/2024 06:19:58 03/09/20 24 03/10/2024 BASIC METAB OLIC PANEL (7) eGFR 38 mL/mi n/1.7 3 >59 below low normal Not Available [facility] ([facility]) [address] [facility], [place], [address], 03/10/2024 06:19:58 03/09/20 24 03/10/2024 BASIC METAB OLIC PANEL (7) BUN/creatini ne ratio 13 12-28 Not Available [facility] ([facility]) [address] [place], [address], 03/10/2024 06:19:58 03/09/20 24 03/10/2024 BASIC METAB OLIC PANEL (7) sodium 141 mmol/ L 134-14 4 Not Available [facility] ([facility]) [address] [place], [address], 03/10/2024 06:19:58 03/09/20 24 03/10/2024 BASIC METAB OLIC PANEL (7) potassium 4.8 mmol/ L 3.5-5. 2 Not Available [facility] ([facility]) [address] [facility], [place], [address], 03/10/2024 06:19:58 03/09/20 24 03/10/2024 BASIC METAB OLIC PANEL (7) chloride 103 mmol/ L 96-106 Not Available [facility] ([facility]) [address] [facility], [place], [address], 03/10/2024 06:19:58 03/09/20 24 03/10/2024 BASIC METAB OLIC PANEL (7) carbon dioxide, total 26 mmol/ L 20-29 Not Available [facility] ([facility]) [address] [place], [address], 03/10/2024 06:19:58 03/09/20 24 03/10/2024 HEMOG LOBIN A1C hemoglobin A1C 6.4 % 4.8-5. 6 above high normal Predi abete s: 5.7 - 6.4 Diabe sherry: >6.4 Glyce todd contr ol for adult s with diabe sherry: <7.0 Not Available [facility] ([facility]) [address] [facility], [place], [address], 03/10/2024 06:19:59 03/09/20 24 03/09/2024 CBC, PLATE LET, NO DIFFE RENTI AL WBC 5.7 x10e3 /uL 3.4-10 .8 Not Available [facility] ([facility]) [address] [facility], [place], [address], 03/10/2024 06:20:00 03/09/20 24 03/09/2024 CBC, PLATE LET, NO DIFFE RENTI AL RBC 3.75 x10e6 /uL 3.77-5 .28 below low normal Not Available [facility] ([facility]) [address] [facility], [place], [address], 03/10/2024 06:20:00 03/09/20 24 03/09/2024 CBC, PLATE LET, NO DIFFE RENTI AL hemoglobin 11.1 g/dL 11.1-1 5.9 Not Available [facility] ([facility]) [address] [facility], [place], [address], 03/10/2024 06:20:00 03/09/20 24 03/09/2024 CBC, PLATE LET, NO DIFFE RENTI AL hematocrit 35.5 % 34.0-4 6.6 Not Available [facility] ([facility]) [address] [facility], [place], [address], 03/10/2024 06:20:00 03/09/20 24 03/09/2024 CBC, PLATE LET, NO DIFFE RENTI AL MCV 95 fL 79-97 Not Available [facility] ([facility]) [address] [place], [address], 03/10/2024 06:20:00 03/09/20 24 03/09/2024 CBC, PLATE LET, NO DIFFE RENTI AL MCH 29.6 pg 26.6-3 3.0 Not Available [facility] ([facility]) [address] [facility], [place], [address], 03/10/2024 06:20:00 03/09/20 24 03/09/2024 CBC, PLATE LET, NO DIFFE RENTI AL MCHC 31.3 g/dL 31.5-3 5.7 below low normal Not Available [facility] ([facility]) [address] [facility], [place], [address], 03/10/2024 06:20:00 03/09/20 24 03/09/2024 CBC, PLATE LET, NO DIFFE RENTI AL RDW 11.7 % 11.7-1 5.4 Not Available [facility] ([facility]) [address] [facility], [place], [address], 03/10/2024 06:20:00 03/09/20 24 03/09/2024 CBC, PLATE LET, NO DIFFE RENTI AL platelets 319 x10e3 /uL 150-45 0 Not Available [facility] ([facility]) [address] [facility], [place], [address], 03/10/2024 06:20:00 04/08/20 24 04/09/2024 MICRO SCOPI C EXAMI NATIO N WBC 11-30 /hpf 0-5 abnormal Not Available [facility] ([facility]) [address] [place], [address], 04/13/2024 06:20:41 04/08/20 24 04/09/2024 MICRO SCOPI C EXAMI NATIO N RBC 3-10 /hpf 0-2 abnormal Not Available [facility] ([facility]) [address] [place], [address], 04/13/2024 06:20:41 04/08/20 24 04/09/2024 MICRO SCOPI C EXAMI NATIO N epithelial cells (non renal) 0-10 /hpf 0-10 Not Available [facility] ([facility]) [address] [place], [address], 04/13/2024 06:20:41 04/08/20 24 04/09/2024 MICRO SCOPI C EXAMI NATIO N casts NONE SEEN /lpf nonese en Not Available [facility] ([facility]) [address] [facility], [place], [address], 04/13/2024 06:20:41 04/08/20 24 04/09/2024 MICRO SCOPI C EXAMI NATIO N bacteria MANY nonese en/few abnormal Not Available [facility] ([facility]) [address] [facility], [place], [address], 04/13/2024 06:20:41 04/08/20 24 04/09/2024 UA WITH CULTU RE REFLE X specific gravity 1.017 1.005- 1.030 Not Available [facility] ([facility]) [address] [facility], [place], [address], 04/13/2024 06:20:41 04/08/20 24 04/09/2024 UA WITH CULTU RE REFLE X pH 6.0 5.0-7. 5 Not Available [facility] ([facility]) [address] [facility], [place], [address], 04/13/2024 06:20:41 04/08/20 24 04/09/2024 UA WITH CULTU RE REFLE X urine-color YELLOW yellow Not Available [facility] ([facility]) [address] [facility], [place], [address], 04/13/2024 06:20:41 04/08/20 24 04/09/2024 UA WITH CULTU RE REFLE X appearance CLEAR clear Not Available [facility] ([facility]) [address] [facility], [place], [address], 04/13/2024 06:20:41 04/08/20 24 04/09/2024 UA WITH CULTU RE REFLE X WBC esterase 1+ negati ve abnormal Not Available [facility] ([facility]) [address] [facility], [place], [address], 04/13/2024 06:20:41 04/08/20 24 04/09/2024 UA WITH CULTU RE REFLE X protein NEGATI VE negati ve/tra ce Not Available [facility] ([facility]) [address] [facility], [place], [address], 04/13/2024 06:20:41 04/08/20 24 04/09/2024 UA WITH CULTU RE REFLE X glucose 3+ negati ve abnormal Not Available [facility] ([facility]) [address] [facility], [place], [address], 04/13/2024 06:20:41 04/08/20 24 04/09/2024 UA WITH CULTU RE REFLE X ketones NEGATI VE negati ve Not Available [facility] ([facility]) [address] [facility], [place], [address], 04/13/2024 06:20:41 04/08/20 24 04/09/2024 UA WITH CULTU RE REFLE X occult blood 2+ negati ve abnormal Not Available [facility] ([facility]) [address] [facility], [place], [address], 04/13/2024 06:20:41 04/08/20 24 04/09/2024 UA WITH CULTU RE REFLE X bilirubin NEGATI VE negati ve Not Available [facility] ([facility]) [address] [facility], [place], [address], 04/13/2024 06:20:41 04/08/20 24 04/09/2024 UA WITH CULTU RE REFLE X urobilinogen ,semi-qn 0.2 mg/dL 0.2-1. 0 Not Available [facility] ([facility]) [address] [place], [address], 04/13/2024 06:20:41 04/08/20 24 04/09/2024 UA WITH CULTU RE REFLE X nitrite, urine POSITI VE negati ve abnormal Not Available [facility] ([facility]) [address] [place], [address], 04/13/2024 06:20:41 04/08/20 24 04/09/2024 UA WITH CULTU RE REFLE X microscopic examination SEE BELOW: Micro scopi c was indic ated and was perfo rmed. Not Available [facility] ([facility]) [address] [place], [address], 04/13/2024 06:20:41 04/08/20 24 04/09/2024 UA WITH CULTU RE REFLE X urinalysis reflex COMMEN T This speci men has refle xed to a Urine Cultu re. Not Available [facility] ([facility]) [address] [facility], [place], [address], 04/13/2024 06:20:41 04/08/20 24 04/12/2024 URINE CULTU RE, ROUTI NE urine culture, routine FINAL REPORT abnormal Not Available [facility] ([facility]) [address] [place], [address], 04/13/2024 06:20:42 04/08/20 24 04/12/2024 URINE CULTU RE, ROUTI NE result 1 ESCHER ICHIA COLI abnormal Cefaz dalia with an TODD <=16 predi cts susce ptibi lity to the oral agent s cefac lizz, cefdi grant, cefpo doxim e, cefpr ozil, cefur oxime , cepha lexin , and lorac arbef when used for thera py of uncom plica dhara urina ry tract infec tions due to E. coli, Klebs iella pneum oniae , and Prote us mirab ilis. Great er than 100,0 00 colon y formi ng units per mL Not Available [facility] ([facility]) [address] [facility], [place], [address], 04/13/2024 06:20:42 04/08/20 24 04/12/2024 URINE CULTU RE, ROUTI NE antimicrobia l susceptibili ty COMMEN T S = Susce ptibl e; I = Inter media te; R = Resis tant P = Posit josef; N = Negat josef MICS are expre ssed in micro grams per mL Antib iotic RSLT# 1 RSLT# 2 RSLT# 3 RSLT# 4 Amoxi cilli n/Cla vulan ic Acid I Ampic illin R Cefaz dalia S Cefep alan S Ceftr iaxon e S Cefur oxime S Cipro floxa elizabeth S Ertap enem S Genta micin S Imipe nem S Levof loxac in S Merop enem S Nitro furan toin S Piper acill in/Ta zobac buckner S Tetra cycli ne S Tobra mycin S Trime thopr im/Sloan lfa S Not Available [facility] ([facility]) [address] [facility], [place], [address], 04/13/2024 06:20:42 04/08/20 24 04/08/2024 urina lysis , dipst ick Leukocytes Trace Not Available In-Offi ce Order Internal Use Only DO Not Attach Compendium DO Not Attach Compendium, Do Not Delete/merge, [id number] 04/08/2024 11:49:46 04/08/20 24 04/08/2024 urina lysis , dipst ick Nitrite positi ve Not Available In-Office Order Internal Use Only DO Not Attach Compendium DO Not Attach Compendium, Do Not Delete/merge, [id number] 04/08/2024 11:49:46 04/08/20 24 04/08/2024 urina lysis , dipst ick Urobilinogen .2 Not Available In-Of fice Order Internal Use Only DO Not Attach Compendium DO Not Attach Compendium, Do Not Delete/merge, [id number] 04/08/2024 11:49:46 04/08/20 24 04/08/2024 urina lysis , dipst ick Protein Negati ve Not Available In-Office Order Internal Use Only DO Not Attach Compendium DO Not Attach Compendium, Do Not Delete/merge, [facility] 04/08/2024 11:49:46 04/08/20 24 04/08/2024 urina lysis , dipst ick pH 5.5 Not Available In-Office Order Internal Use Only DO Not Attach Compendium DO Not Attach Compendium, Do Not Delete/merge, [facility] 04/08/2024 11:49:46 04/08/20 24 04/08/2024 urina lysis , dipst ick Blood Modera te Not Available In-Office Order Internal Use Only DO Not Attach Compendium DO Not Attach Compendium, Do Not Delete/merge, [facility] 04/08/2024 11:49:46 04/08/20 24 04/08/2024 urina lysis , dipst ick Specific [place] 1.020 Not Available In-Off ice Order Internal Use Only DO Not Attach Compendium DO Not Attach Compendium, Do Not Delete/merge, [facility] 04/08/2024 11:49:46 04/08/20 24 04/08/2024 urina lysis , dipst ick Ketone Negati ve Not Available In-Office Order Internal Use Only DO Not Attach Compendium DO Not Attach Compendium, Do Not Delete/merge, [facility] 04/08/2024 11:49:46 04/08/20 24 04/08/2024 urina lysis , dipst ick Bilirubin Negati ve Not Available In-Office Order Internal Use Only DO Not Attach Compendium DO Not Attach Compendium, Do Not Delete/merge, [facility] 04/08/2024 11:49:46 04/08/20 24 04/08/2024 urina lysis , dipst ick Glucose 1000 Not Available In-Office Order Internal Use Only DO Not Attach Compendium DO Not Attach Compendium, Do Not Delete/merge, [facility] 04/08/2024 11:49:46 04/08/20 24 04/08/2024 urina lysis , dipst ick Color Yellow Not Available In-Office Order Internal Use Only DO Not Attach Compendium DO Not Attach Compendium, Do Not Delete/merge, [facility] 04/08/2024 11:49:46 07/11/20 24 07/21/2024 COMPL IANCE DRUG MATILDA SIS, UR summary report (summary) FINAL ===== ===== ===== ===== ===== ===== ===== ===== ===== ===== ===== ===== ===== === TOXAS SURE COMP DRUG MATILDA SIS,U R ===== ===== ===== ===== ===== ===== ===== ===== ===== ===== ===== ===== ===== === Test Resul t Flag Units Drug Prese nt Alcoh ol, Ethyl 0.290 g/dL Sourc es of ethyl alcoh ol inclu de alcoh olic bever ages or as a ferme ntati on produ ct of gluco se; gluco se is prese nt in this speci men. Inter pret resul t with cauti on, as the prese nce of ethyl alcoh ol is likel y due, at least in part, to ferme ntati on of gluco se. Codei ne 481 ng/mg creat Sourc es of codei ne inclu de sched uled presc ripti on medic ation s. ===== ===== ===== ===== ===== ===== ===== ===== ===== ===== ===== ===== ===== === Test Resul t Flag Units Ref Range Creat inine 80 mg/dL >=20 ===== ===== ===== ===== ===== ===== ===== ===== ===== ===== ===== ===== ===== === Decla red Medic ation s: Medic ation list was not provi ded. ===== ===== ===== ===== ===== ===== ===== ===== ===== ===== ===== ===== ===== === For clini jovany consu ltati on, pleas e call . ===== ===== ===== ===== ===== ===== ===== ===== ===== ===== ===== ===== ===== === Not Available [facility] ([facility]) [address] [facility], [place], [address], 07/21/2024 17:08:38 07/11/20 24 07/21/2024 COMPL IANCE DRUG MATILDA SIS, UR pdf . Not Available [facility] ([facility]) [address] [facility], [place], [address], 07/21/2024 17:08:38 10/28/19 25 10/28/2024 Hemog lobin A1c/H emogl obin. total in Blood hemoglobin A1C/hemoglob in.total in blood 6.2 text: <5.7 % of total HGB high Hemog lobin A1C 6.2 (H) <5.7 % of total Hgb [facility] Not Available Not Available 11/17/2024 10:37:55 10/28/19 25 10/28/2024 Hemog lobin A1c/H emogl obin. total in Blood Unknown Analyte FASTIN G:YES FASTIN G: YES Not Available Not Available 10:37:55 10/28/1910/28/2024 Hemog lobin A1c/H emogl obin. total in Blood Unknown Analyte PERFOR TRISTAN ORGANI ZATION INFORM ATION: SITE ID: NAME: [facility] [place] S: [id number] [place] [address] DIRECT OR: HUMBERTO-Garrett MCDUFFIE VO Perfo rming Organ izati on Infor matio n: [facility] ID: [facility] [id number] [place] [address] Direc tor: Carolyn Mcduffie Vo Not Available Not Available 11/17/2024 10:37:55 10/28/19 25 10/28/2024 Hemog lobin A1c/H emogl obin. total in Blood interpretati on and review of laboratory results ABNORM AL Not Available Not Available 10:37:55 02/10/20 25 02/09/2025 LIPID PANEL , STAND ALMA DELIA cholesterol, total 104 mg/dL <200 normal Not Available [facility] [address] [address] [place], [address], 02/09/2025 23:50:26 02/10/20 25 02/09/2025 LIPID PANEL , STAND ALMA DELIA HDL cholesterol 51 mg/dL > or = 50 normal Not Available [facility] [address], [address], 02/09/2025 23:50:26 02/10/20 25 02/09/2025 LIPID PANEL , STAND ALMA DELIA triglyceride s 86 mg/dL <150 normal Not Available [facility] [address] [address] [place], [address], 02/09/2025 23:50:26 02/10/20 25 02/09/2025 LIPID PANEL , STAND ALMA DELIA LDL-choleste rol 36 mg/dL _(jovany c) normal Refer ence range : <100 Kaelyn able range <100 mg/dL for prima ry preve ntion ; <70 mg/dL for patie nts with CHD or diabe tic patie nts with > or = 2 CHD risk facto rs. LDL-C is now calcu lated using the Johana n-Hop kins tianau azul alonzo, which is a valid ated novel metho d provi jhon leroyte r accur acy than the Fried tonio equat ion in the estim ation of LDL-C . Johana alonzo SS et al. WALESKA. 2013; 310(1 9): 2061- 2068 (http ://ed ucati on.Qu Ghada cobb Zipdial. com/f aq/FA Q164) Not Available [facility] [address], [place], [address], 02/09/2025 23:50:26 02/10/20 25 02/09/2025 LIPID PANEL , STAND ALMA DELIA chol/HDLC ratio 2.0 (calc ) <5.0 normal Not Available [facility] [address], [place], [address], 02/09/2025 23:50:26 02/10/20 25 02/09/2025 LIPID PANEL , STAND ALMA DELIA non HDL cholesterol 53 mg/dL _(jovany c) <130 normal For patie nts with diabe sherry plus 1 major ASCVD risk facto r, treat ing to a non-H DL-C goal of <100 mg/dL (LDL- C of <70 mg/dL ) is consi dered a thera peuti c optio n. Not Available [facility] [id number], [place], [address], 02/09/2025 23:50:26 02/10/2002/09/2025 HEMOG LOBIN A1C hemoglobin A1C 6.2 %_of_ total _HGB <5.7 high For someo ne witho ut known diabe sherry, a hemog lobin A1c value betwe en 5.7% and 6.4% is consi stent with predi abete s and shoul d be confi rmed with a follo w-up test. For someo ne with known diabe sherry, a value <7% indic ates that their diabe sherry is well contr olled . A1c targe ts shoul d be indiv idual ized based on durat ion of diabe sherry, age, comor bid condi tions , and other consi derat ions. This assay resul t is consi stent with an incre ased risk of diabe sherry. Curre ntly, no conse nsus exist s regar ding use of hemog lobin A1c for diagn osis of diabe sherry for child sanjeev. Not Available [facility] [place] [address] [place], [address], 02/09/2025 23:50:27 02/28/20 25 02/28/2025 RENAL PANEL (10) glucose 73 mg/dL 70-99 Not Available [facility] ([facility]) [address] [place], [address], 02/28/2025 11:12:19 02/28/20 25 02/28/2025 RENAL PANEL (10) BUN 25 mg/dL 8-27 Not Available [facility] ([facility]) [address] [place], [address], 02/28/2025 11:12:19 02/28/20 25 02/28/2025 RENAL PANEL (10) creatinine 1.48 mg/dL 0.57-1 .00 above high normal Not Available [facility] ([facility]) [address] [place], [address], 02/28/2025 11:12:19 02/28/20 25 02/28/2025 RENAL PANEL (10) eGFR 38 mL/mi n/1.7 3 >59 below low normal Not Available [facility] ([facility]) [address] [place], [address], 02/28/2025 11:12:19 02/28/20 25 02/28/2025 RENAL PANEL (10) BUN/creatini ne ratio 17 12-28 Not Available [facility] ([facility]) [address] [place], [address], 02/28/2025 11:12:19 02/28/20 25 02/28/2025 RENAL PANEL (10) sodium 140 mmol/ L 134-14 4 Not Available [facility] ([facility]) [address] [place], [address], 02/28/2025 11:12:19 02/28/20 25 02/28/2025 RENAL PANEL (10) potassium 5.3 mmol/ L 3.5-5. 2 above high normal Not Available [facility] ([facility]) [address] [facility] [place], [address], 02/28/2025 11:12:19 02/28/20 25 02/28/2025 RENAL PANEL (10) chloride 101 mmol/ L 96-106 Not Available [facility] ([facility]) [address] [facility] [place], [address], 02/28/2025 11:12:19 02/28/20 25 02/28/2025 RENAL PANEL (10) carbon dioxide, total 23 mmol/ L Not Available [facility] ([facility]) [address] [facility] [place], [address], 02/28/2025 11:12:19 02/28/20 25 02/28/2025 RENAL PANEL (10) calcium 9.5 mg/dL 8.7-10 .3 Not Available [facility] ([facility]) [address] [facility] [place], [address], 02/28/2025 11:12:19 02/28/2002/28/2025 RENAL PANEL (10) phosphorus 3.8 mg/dL 3.0-4. 3 Not Available [facility] ([facility]) [address] [facility] [place], [address], 02/28/2025 11:12:19 02/28/20 25 02/28/2025 RENAL PANEL (10) albumin 4.2 g/dL 3.9-4. 9 Not Available [facility] ([facility]) [address] [facility] [place], [address], 02/28/2025 11:12:19 02/28/20 25 02/28/2025 URINA LYSIS , ROUTI NE specific gravity 1.015 1.005- 1.030 Not Available [facility] ([facility]) [address] [facility] [place], [address], 02/28/2025 11:12:21 02/28/20 25 02/28/2025 URINA LYSIS , ROUTI NE pH 5.5 5.0-7. 5 Not Available [facility] ([facility]) [address] [place], [address], 02/28/2025 11:12:21 02/28/20 25 02/28/2025 URINA LYSIS , ROUTI NE urine-color YELLOW yellow Not Available [facility] ([facility]) [address] [place], [address], 02/28/2025 11:12:21 02/28/20 25 02/28/2025 URINA LYSIS , ROUTI NE appearance CLEAR clear Not Available [facility] ([facility]) [address] [place], [address], 02/28/2025 11:12:21 02/28/20 25 02/28/2025 URINA LYSIS , ROUTI NE WBC esterase NEGATI VE negati ve Not Available [facility] ([facility]) [address] [place], [address], 02/28/2025 11:12:21 02/28/20 25 02/28/2025 URINA LYSIS , ROUTI NE protein NEGATI VE negati ve/tra ce Not Available [facility] ([facility]) [address] [place], [address], 02/28/2025 11:12:21 02/28/20 25 02/28/2025 URINA LYSIS , ROUTI NE glucose 1+ negati ve abnormal Not Available [facility] ([facility]) [address] [place], [address], 02/28/2025 11:12:21 02/28/20 25 02/28/2025 URINA LYSIS , ROUTI NE ketones NEGATI VE negati ve Not Available [facility] ([facility]) [address] [place], [address], 02/28/2025 11:12:21 02/28/2002/28/2025 URINA LYSIS , ROUTI NE occult blood NEGATI VE negati ve Not Available [facility] ([facility]) [address] [facility], [place], [address], 02/28/2025 11:12:21 02/28/2002/28/2025 URINA LYSIS , ROUTI NE bilirubin NEGATI VE negati ve Not Available [facility] ([facility]) [address] [facility], [place], [address], 02/28/2025 11:12:21 02/28/2002/28/2025 URINA LYSIS , ROUTI NE urobilinogen ,semi-qn 1.0 mg/dL 0.2-1. 0 Not Available [facility] ([facility]) [address] [facility], [place], [address], 02/28/2025 11:12:21 02/28/20 25 02/28/2025 URINA LYSIS , ROUTI NE nitrite, urine NEGATI VE negati ve Not Available [facility] ([facility]) [address] [facility], [place], [address], 02/28/2025 11:12:21 02/28/2002/28/2025 URINA LYSIS , ROUTI NE microscopic examination COMMEN T Micro scopi c not indic ated and not perfo rmed. Not Available [facility] ([facility]) [address] [facility], [place], [address], 02/28/2025 11:12:21 02/28/2002/28/2025 TSH TSH 0.956 uIU/m L 0.450- 4.500 Not Available [facility] ([facility]) [address] [place], [address], 02/28/2025 11:12:23 02/28/20 02/28/2025 CBC, PLATE LET, NO DIFFE RENTI AL WBC 7.7 x10e3 /uL 3.4-10 .8 Not Available [facility] ([facility]) [address] [facility], [place], [address], 02/28/2025 11:12:02/28/2002/28/2025 CBC, PLATE LET, NO DIFFE RENTI AL RBC 3.83 x10e6 /uL 3.77-5 .28 Not Available [facility] ([facility]) [address] [facility], [place], [address], 02/28/2025 11:12:02/28/2002/28/2025 CBC, PLATE LET, NO DIFFE RENTI AL hemoglobin 11.2 g/dL 11.1-1 5.9 Not Available [facility] ([facility]) [address] [facility], [place], [address], 02/28/2025 11:12:02/28/2002/28/2025 CBC, PLATE LET, NO DIFFE RENTI AL hematocrit 37.2 % 34.0-4 6.6 Not Available [facility] ([facility]) [address] [facility], [place], [address], 02/28/2025 11:12:02/28/2002/28/2025 CBC, PLATE LET, NO DIFFE RENTI AL MCV 97 fL 79-97 Not Available [facility] ([facility]) [address] [place], [address], 02/28/2025 11:12:02/28/2002/28/2025 CBC, PLATE LET, NO DIFFE RENTI AL MCH 29.2 pg 26.6-3 3.0 Not Available [facility] ([facility]) [address] [place], [address], 02/28/2025 11:12:02/28/2002/28/2025 CBC, PLATE LET, NO DIFFE RENTI AL MCHC 30.1 g/dL 31.5-3 5.7 below low normal Not Available [facility] ([facility]) [address] [facility], [place], [address], 02/28/2025 11:12:25 02/28/20 25 02/28/2025 CBC, PLATE LET, NO DIFFE RENTI AL RDW 12.1 % 11.7-1 5.4 Not Available [facility] ([facility]) [address] [facility], [place], [address], 02/28/2025 11:12:25 02/28/2002/28/2025 CBC, PLATE LET, NO DIFFE RENTI AL platelets 327 x10e3 /uL 150-45 0 Not Available [facility] ([facility]) [address] [facility], [place], [address], 02/28/2025 11:12:25 03/25/20 24 03/23/2024 trans -thor acic echoc ardio gram (TTE) (PROC ) No observ ation record ed. [facility] [address], [place], [address], 04/08/2024 11:45:12 03/25/20 24 03/23/2024 arter ial study , lower extre mity, compl ete No observ ation record ed. [facility] [address], [place], [address], 04/08/2024 11:45:11 04/14/20 24 04/14/2024 CT, abdom en + pelvi s, w/o contr ast No observ ation record ed. [facility] [address], [place], [address], 08/15/2024 15:54:02 05/26/20 24 05/26/2024 XR, abdom en No observ ation record ed. [facility] [address], [place], [address], 08/15/2024 15:54:01 06/21/20 24 06/21/2024 XR, kidne y + urete r + bladd er No observ ation record ed. [facility] [address], [place], [address], 08/15/2024 15:54:01 07/06/20 24 07/06/2024 XR, kidne y + urete r + bladd er No observ ation record ed. [facility] [address], [place], [address], 08/15/2024 15:54:01 01/04/20 25 01/03/2025 MAMMO , scree shilpa, digit al, bilat eral No observ ation record ed. [facility] [address], [place], [address], 02/27/2025 11:27:38 01/06/20 25 01/03/2025 MAMMO , scree shilpa, digit al, bilat eral No observ ation record ed. [facility] [address], [place], [address], 02/27/2025 11:27:38 05/01/20 25 04/05/2025 sleep study , diagn ostic (PROC ) No observ ation record ed. [facility] [address], [place], [address], 05/29/2025 11:34:15 Result Notes None recorded. Problems Name Problem SNOMED Code Status Onset Date Resolution Date Notes Provider Name and Address Organization Details Recorded Time Coronary atherosc lerosis 214540904 Active Darlene Salguero MD Attn: Accounting ,[address] [place], [address] , [place] - [place] 4 12:52:31 Chest pain 15262930 Active Not Available [facility] 3 14:53:08 Diabetes mellitus 88685110 Active Not Available [facility] 3 14:53:08 Cramp 35148705 Active Not Available [facility] 3 14:53:08 Pain of shoulder region 21554399 Active Not Available [facility] 3 14:53:08 Tobacco user 520160564 Active Not Available [facility] 3 14:53:08 Obstruct josef sleep apnea syndrome 23594029 Active Not Available [facility] 3 14:53:08 Benign hyperten aneta 45550418 Active Not Available [facility] 3 14:53:08 Heel pain 6170928 Active Not Available [facility] 3 14:53:08 Depressi ve disorder 47998289 Active Not Available [facility] 3 14:53:08 Tobacco dependen ce syndrome 63891787 Active Not Available [facility] 3 14:53:08 Obesity 025390758 Active 2013 Not Available [facility] 3 14:53:08 Essentia l hyperten aneta 05883200 Active 2013 Not Available [facility] 3 14:53:08 Coronary arterios clerosis 69219248 Active 2016 Not Available [facility] 3 14:53:08 Musculos keletal pain 516970951 Active 2016 Not Available [facility] 3 14:53:08 Polyp of colon 65347847 Active 2017 Not Available [facility] 3 14:53:08 Low back pain 236732475 Active 2017 Not Available [facility] 3 14:53:08 Degenera tive spondylo listhesi s 9433886 Active 2017 Thoracic and Lumbar spine Not Available [facility] 3 14:53:08 Renal insuffic iency 590756198 Active 2017 Not Available [facility] 3 14:53:08 Immuniza tion refused Active 2017 Not Available [facility] 3 14:53:08 History of placemen t of stent for coronary artery disease 845328079 Active 2017 Not Available [facility] 3 14:53:08 History of polyp of colon 791666025 Active 2018 Not Available [facility] 3 14:53:08 History of bariatri c surgical procedur e 688619099 Active 2018 Not Available [facility] 3 14:53:08 Osteoart hritis of knee 435615213 Active 2018 Not Available [facility] 3 14:53:08 Osteoart hritis of joint of hand 85362654 Active 2018 Not Available [facility] 3 14:53:08 Trigger finger of right hand 03109209803 949365 Active 2018 Not Available [facility] 3 14:53:08 Lumbar radiculo melody 657744305 Active 2018 Not Available [facility] 3 14:53:08 Stenosis of interver tebral foramina 24605458324 9 Active 2019 Not Available [facility] 3 14:53:08 Chronic back pain 670685747 Active 2019 Not Available [facility] 3 14:53:08 Influenz a vaccinat ion declined 496278973 Active 2019 Not Available [facility] 3 14:53:08 Chronic anemia 889994113 Active 2019 Not Available [facility] 3 14:53:08 Degenera tion of lumbar interver tebral disc 38324970 Active 2020 Not Available [facility] 3 14:53:08 Vitamin D deficien cy 25063507 Active 2020 Not Available [facility] 3 14:53:08 Osteoart hritis 097443793 Active 2020 Not Available [facility] 3 14:53:08 Dysthymi a 31665899 Active 2020 Not Available [facility] 3 14:53:08 Hyperkal emia 56634060 Completed 202002/28/2021 Darlene Salguero MD Attn: Accounting ,[address] [facility], [place], [address] , [place] - [facility] 4 12:52:15 Type 2 diabetes mellitus without complica tion 046543965 Completed 202002/28/2021 Darlene Salguero MD Attn: Accounting ,[address] [facility], [place], [address] , [facility] - [facility] 4 12:52:15 SARS-CoV -2 vaccinat ion declined 5109563768 Active 2022 Not Available [facility] 3 14:53:08 Chronic insomnia 110116184 Active 2024 Darlene Salguero MD Attn: Accounting ,[address] [place], [address] , [facility] - [facility] 5 11:29:21 Chronic kidney disease stage 3B 412923991 Active 2024 Darlene Salguero MD Attn: Accounting ,[address] [place], [address] , [facility] - [facility] 5 11:48:05 Notes:Some problems listed i n Documents: #[id number], #[id number], #[id number], #[id number], #[id number], #[id number], #[id number], #[id number], #[id number] could not be added to this patient's chart. Please review these documents and add these problems to the patient's chart manually as needed. Problem Notes None recorded. Procedures Surgical History Date Name Laterality Status Provider Name and Address Organization Details Recorded Time 02/28/20 25 Diabetic Foot Exam completed Darlene Salguero MD Attn: Accounting, [address] [place], [address], [place] [facility] 02/27/2025 11:51:40 01/18/20 24 Diabetic Foot Exam completed Darlene Salguero MD Attn: Accounting, [address] [place], [address], [place] [facility] 01/18/2024 13:41:10 04/13/20 23 colonoscopy completed Darlene Salguero MD Attn: Accounting, [address] [place], [address], [place] [facility] 04/13/2023 14:20:12 01/31/20 21 Colonoscopy completed Darlene Salguero MD Attn: Accounting, [address] [place], [address], [place] [facility] 02/05/2021 13:15:32 09/14/19 19 colonoscopy completed Darlene Salguero MD Attn: Accounting, [address] [place], [address], [place] [facility] 03/30/2020 15:22:55 Total hysterectomy completed Kj Salguero MD Attn: Accounting, [address] [place], [address], [place] [facility] 04/01/2017 13:07:54 Gastric Bypass completed Darlene Salguero MD Attn: Accounting, [address] [place], [address], [place] [facility] 07/24/2015 16:49:15 Cholecystectomy completed Darlene Salguero MD Attn: Accounting, [address] [place], [address], [place] [facility] 07/24/2015 16:49:15 Hysterectomy completed Darlene Salguero MD Attn: Accounting, [address] [place], [address], [place] [facility] 07/24/2015 16:49:47 Other completed Darlene Salguero MD Attn: Accounting, [address] [place], [address], [place] [facility] 07/24/2015 16:49:47 Imaging Results None recorded. Procedure Notes None recorded. Medical Equipment None Reported. Allergies Allergen ID Allergen Name Allergen Category Reaction Reaction Severity Criticality Documentation Date Start Date Code Code System Note Provider Name and Address Organization Details Recorded Time 461953 No known allergy (situatio n) Not available Not available Not available Not available 07/22/2021 75190 6003 SNOMED Darlene Salguero MD Attn: Len valverde,[address], [place], [address], [facility] - [facility] 12:23:49 No known drug allergies Medications Name Sig Start Date Stop Date Status Note LastModified by Organization Details LastModified Time Prescript ion - Renewal 11/28 completed Refill Acetamin ophen-Co deine Not Available Not Available Not Available Prescript ion - New 06/03 completed Not Available Not Available Not Available Dexcom G6 CGM active Not Available Not Available Not Available cyclobenz aprine 10 mg tablet TAKE 1 TABLET BY MOUTH THREE TIMES DAILY FOR 14 DAYS NEEDED active Not Available Not Available No t Available fluconazo le 100 mg tablet TAKE 1 TABLET BY MOUTH EVERY 72 HOURS FOR 9 DAYS 03/10 completed Not Available Not Available Not Available metformin 500 mg tablet TAKE 1 TABLET BY MOUTH TWICE DAILY 2024 active Not Available Not Available Not Avai lable azelastin e 0.05 % eye drops INSTILL 1 DROP BOTH EYES TWICE DAILY 01/17 completed Not Available Not Available Not Available nystatin 100,000 unit/mL oral suspensio n 03/14 completed Not Available Not Available Not Available prednison e 10 mg tablet 07/22 completed Not Available Not Available Not Available atorvasta tin 20 mg tablet TAKE 1 TABLET BY MOUTH EVERY DAY 2024 active Not Available Not Available Not Avai lable nicotine 14 mg/24 hr daily transderm al patch Apply 1 patch every day by transder mal route for 14 days. 09/03 completed Not Available Not Available Not Available azithromy elizabeth 250 mg tablet 03/14 completed Not Available Not Available Not Available aspirin 325 mg tablet Take 1 tablet every day by oral route. 05/06 completed On hold due to Epistaxi s Not Available Not Available Not Available fluconazo le 150 mg tablet TAKE 1 TABLET BY MOUTH EVERY DAY FOR 1 DAY DIRECTED FOR YEAST INFECTIO N 08/15 completed Not Available Not Available Not Available metoprolo l succinate ER 50 mg tablet,ex tended release 24 hr TAKE 1 TABLET BY MOUTH EVERY DAY 12/25 completed Not Available Not Available Not Available sulfameth oxazole 400 mg-trimet hoprim 80 mg tablet TAKE 1 TABLET BY MOUTH EVERY 12 HOURS AROUND THE CLOCK FOR 3 DAYS FOR UTI 05/10 completed Not Available Not Available Not Available hydrocodo ne 5 mg-acetam inophen 325 mg tablet TAKE 1-2 TABLET BY MOUTH EVERY 6 HOURS NEEDED 08/15 completed Not Available Not Available Not Available lisinopri l 20 mg tablet TAKE 1 TABLET BY MOUTH DAILY active Not Available Not Available No t Available prednison e 20 mg tablet TAKE 3 TABLETS BY MOUTH DAILY FOR 5 DAYS 08/15 completed Not Available Not Available Not Available acetamino phen 300 mg-codein e 30 mg tablet TAKE 1 TABLET BY MOUTH TWICE DAILY NEEDED FOR SEVERE PAIN 05/29 completed Not Available Not Available Not Available clopidogr el 75 mg tablet TAKE 1 TABLET BY MOUTH EVERY DAY active Not Available Not Available No t Available chlorthal idone 25 mg tablet TAKE 1/2 TABLET BY MOUTH EVERY MORNING active Not Available Not Available No t Available amlodipin e 5 mg tablet TAKE 1 TABLET BY MOUTH EVERY DAY 05/10 completed Not Available Not Available Not Available ciproflox acin 500 mg tablet TAKE 1 TABLET BY MOUTH TWICE DAILY 05/10 completed Not Available Not Available Not Available sulfameth oxazole 800 mg-trimet hoprim 160 mg tablet TAKE 1 TABLET BY MOUTH EVERY 12 HOURS AROUND THE CLOCK FOR 3 DAYS FOR UTI 08/15 completed Not Available Not Available Not Available peg-elect rolyte solution 420 gram oral solution 06/22 completed Not Available Not Available Not Available aspirin 81 mg tablet,de layed release Take 1 tablet every day by oral route as directed for 90 days. 2017 active Not Available Not Available Not Avai lable famotidin e 20 mg tablet TAKE 1 TABLET BY MOUTH DAILY 09/03 completed Not Available Not Available Not Available prednisol one acetate 1 % eye drops,kenneth pension INSTILL 1 DROP INTO SURGICAL EYE THREE TIMES DAILY STARTING 4 HOURS AFTER SURGERY AND CONTINUI NG [id number] active Not Available Not Available No t Available methocarb harjinder 750 mg tablet TAKE 1 TABLET BY MOUTH THREE TIMES DAILY NEEDED 01/17 completed Not Available Not Available Not Available aspirin 325 mg tablet,de layed release Take 1 tablet every day by oral route. 10/13 completed Not Available Not Available Not Available OneTouch Ultra Test strips USE TO TEST BLOOD SUGAR ONCE DAILY active Not Available Not Available No t Available cephalexi n 500 mg capsule TAKE 1 CAPSULE BY MOUTH EVERY 8 HOURS FOR 7 DAYS 12/04 completed Not Available Not Available Not Available pantopraz ole 40 mg tablet,de layed release TAKE 1 TABLET BY MOUTH EVERY DAY 2024 active Not Available Not Available Not Avai lable cyanocoba ed (vit B-12) 1,000 mcg/mL injection solution Inject 1 mL every month by subcutan eous route. 04/08 completed Not Available Not Available Not Available ferrous sulfate 325 mg (65 mg iron) tablet Take 1 {tbl} every day by oral route as directed . active Not Available Not Available No t Available diclofena c 0.1 % eye drops INSTILL 1 DROP IN LEFT EYE THREE TIMES DAILY FOR 2 WEEKS active Not Available Not Available No t Available triamcino lone acetonide 0.1 % topical ointment APPLY THIN LAYER TOPICALL Y TO THE AFFECTED AREA TWICE DAILY 06/22 completed Not Available Not Available Not Available lisinopri l 10 mg tablet Take 1 tablet every day by oral route. 11/28 completed Not Available Not Available Not Available nicotine 21 mg/24 hr daily transderm al patch Apply 1 patch every day by transder mal route for 42 days. 09/03 completed Not Available Not Available Not Available hydrochlo rothiazid e 12.5 mg capsule 03/14 completed Not Available Not Available Not Available nitroglyc romana 0.4 mg sublingua l tablet PLACE 1 TABLET UNDER THE TONGUE NEEDED FOR CHEST PAIN EVERY 15 MINUTES FOR UP TO 3 DOSES THEN CALL 911 active Not Available Not Available No t Available aspirin 81 mg chewable tablet Chew 1 tablet every day by oral route for 90 days. 09/03 completed Not Available Not Available Not Available diclofena c sodium 75 mg tablet,de layed release TAKE 1 TABLET BY MOUTH TWICE DAILY 06/22 completed Not Available Not Available Not Available lisinopri l 5 mg tablet Take 1 tablet every day by oral route. 04/01 completed Not Available Not Available Not Available mupirocin 2 % topical ointment APPLY A SMALL AMOUNT TO THE AFFECTED AREA WITH CLEAN COTTON SWAB TWICE DAILY 01/17 completed Not Available Not Available Not Available metoprolo l succinate ER 25 mg tablet,ex tended release 24 hr TAKE 1/2 TABLET BY MOUTH DAILY active Not Available Not Available No t Available naproxen 500 mg tablet TAKE 1 TABLET BY MOUTH EVERY 12 HOURS WITH FOOD NEEDED FOR PAIN 05/10 completed Not Available Not Available Not Available amoxicill in 875 mg-potass ium clavulana te 125 mg tablet TAKE 1 TABLET BY MOUTH TWICE DAILY 12/25 completed Not Available Not Available Not Available nabumeton e 500 mg tablet active Not Available Not Available Not Available nicotine 7 mg/24 hr daily transderm al patch Apply 1 patch every day by transder mal route for 14 days. 09/03 completed Not Available Not Available Not Available Benadryl 25 mg capsule Take 1 capsule every 4 hours by oral route as needed for 5 days. 05/10 completed Not Available Not Available Not Available Vitamin B-12 ER 1,000 mcg tablet,ex tended release Take 1 tablet every day by oral route as directed for 30 days. 08/30 completed Not Available Not Available Not Available azithromy elizabeth 500 mg tablet TAKE 1 TABLET BY MOUTH EVERY DAY 12/04 completed Not Available Not Available Not Available Vitamin D3 25 mcg (1,000 unit) capsule Take 1 tablet by oral route. 01/22 completed Not Available Not Available Not Available OneTouch Ultra2 Meter kit Once a day testing 2020 active Not Available Not Available Not Avai lable Januvia 100 mg tablet TAKE 1 TABLET BY MOUTH EVERY DAY FOR DIABETES active Not Available Not Available No t Available Golytely 236 gram-22.7 4 gram-6.74 gram-5.86 gram oral solution 06/22 completed Not Available Not Available Not Available Lexiscan 0.4 mg/5 mL intraveno us syringe 0.4 mg by intraven . route. 04/09 completed Not Available Not Available Not Available cholecalc iferol (vitamin D3) 50 mcg (2,000 unit) capsule Take 1 {capsule } by oral route. 11/03/ 2020 01/13 /2025 completed Not Available Not Available Not Available Farxiga 10 mg tablet TAKE 1 TABLET BY MOUTH EVERY DAY DIRECTED FOR DIABETES active Not Available Not Available No t Available Farxiga 5 mg tablet TAKE 1 TABLET BY MOUTH 1 TIME EACH DAY 12/25 completed HBA1C 8.1%> I have increase d her Farxiga to 10 mg on 3 Not Available Not Available Not Available Ozempic 0.25 mg or 0.5 mg (2 mg/1.5 mL) subcutane ous pen injector INJECT 0.25 MG UNDER THE SKIN ONCE A WEEK 03/10 completed [employer] entry Not Available Not Available Not Available OneTouch Ultra Blue Test Strip USE TO TEST ONCE EVERY DAY. 2020 active Not Available Not Available Not Avai lable OneTouch Delica Plus Lancet 33 gauge USE TO TEST ONCE DAILY active Not Available Not Available No t Available OneTouch Delica Plus Lancet 30 gauge USE TO TEST BLOOD SUGAR ONCE DAILY active Not Available Not Available No t Available OneTouch Verio Reflect Meter TEST ONE DAILY active Not Available Not Available No t Available Ozempic 1 mg/dose (4 mg/3 mL) subcutane ous pen injector INJECT 1MG UNDER THE SKIN ONCE A WEEK active Not Available Not Available No t Available Ozempic 0.25 mg or 0.5 mg (2 mg/3 mL) subcutane ous pen injector INJECT 0.5 MG UNDER THE SKIN ONCE A WEEK 01/17 completed Not Available Not Available Not Available Vitals Date Recorded Body height Body mass index (BMI) Body weight Heart rate Oxygen saturation Respiratory rate Systolic And Diastolic Provider Name and Address Organization Details Last Updated DateTime 5 167.64 cm 31.3 kg/m2 17154.9 2 g 76 /min 100 % 16 /min 140/76 mm[Hg] Allyson Melendez MA [facility] 5 15:44:46 Date Recorded Body height Body mass index (BMI) Body weight Heart rate Oxygen saturation Body temperature Systolic And Diastolic Provider Name and Address Organization Details Last Updated DateTime 4 167.64 cm 31.2 kg/m2 61633.4 1 g 87 /min 97 % 98.2 [degF] 124/78 mm[Hg] Allyson Melendez MA [facility] 4 12:15:28 Date Recorded Body height Body mass index (BMI) Body weight Heart rate Oxygen saturation Respiratory rate Body temperature Systolic And Diastolic Provider Name and Address Organization Details Last Updated DateTime 5 167.64 cm 29.1 kg/m2 92403.7 g 76 /min 99 % 14 /min 98.2 [degF] 130/70 mm[Hg] Allyson Melendez MA [facility] 5 11:03:23 Date Recorded Body height Body mass index (BMI) Body weight Heart rate Oxygen saturation Body temperature Systolic And Diastolic Systolic And Diastolic Provider Name and Address Organization Details Last Updated DateTime 4 167.64 cm 30.3 kg/m2 59041.5 7 g 98 /min 97 % 98.7 [degF] 126/50 mm[Hg] 136/60 mm[Hg] Allyson Melendez MA [facility] 4 11:34:10 Date Recorded Body height Body mass index (BMI) Body weight Respiratory rate Body temperature Heart rate Oxygen saturation Systolic And Diastolic Provider Name and Address Organization Details Last Updated DateTime 5 167.64 cm 29.9 kg/m2 25102.5 9 g 12 /min 98.3 [degF] 82 /min 99 % 130/74 mm[Hg] Allyson Melendez MA [facility] 5 11:24:39 Social History Question Answer Notes LastModified by Organizat ion Details LastModified Time Tobacco Smoking Status Former Smoker Quit 08/04/16 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 No Information not available 12/21/2020 Are You Blind Or Do You Have Difficulty Seeing? No Information not available 12/21/2020 What Is Your Level Of Caffeine Consumption? Occasional Information not available 12/21/2020 In The 14 Days Before Symptom Onset, Have You Had Close Contact With A Laboratory-confir med COVID-19 While That Case Was Ill? No Information not available 12/21/2020 In The 14 Days Before Symptom Onset, Have You Had Close Contact With A Person Who Is Under Investigation For COVID-19 While That Person Was Ill? No Information not available 12/21/2020 Have You Been To An Area Known To Be High Risk For COVID-19? Yes Information not available 12/21/2020 Are You Deaf Or Do You Have Serious Difficulty Hearing? No Information not available 12/21/2020 What Type Of Diet Are You Following? REGULAR Information not available 12/21/2020 Are There Any Guns Present In Your Home? No Information not available 12/21/2020 What Was The Date Of Your Most Recent Tobacco Screening? 05/29/2025 Information not available 05/29/2025 What Is Your Current Pack Years? 30ormorepackye ars Information not available 01/22/2023 Do You Have Smoke And Carbon Monoxide Detectors In Your Home? Yes Information not available 12/21/2020 At What Age Did You Start Smoking Tobacco? 11 Information not available 01/22/2023 How Much Tobacco Do You Smoke? 1 PPD Information not available 05/28/2016 Do You Use Sunscreen Routinely? No Information not available 12/21/2020 On What Date Was Tobacco Cessation Counseling Provided? 01/22/2023 Information not available 01/22/2023 How Many Years Have You Smoked Tobacco? 40 Information not available 05/28/2016 Sex: Unknown Functional Status Question Answer Note LastModified by Organizat ion Details LastModified Time Do you use any illicit or recreational drugs? No Information not available 12/21/2020 Do you or have you ever used any other forms of tobacco or nicotine? No Information not available 01/22/2023 What is your level of alcohol consumption? None Information not available 12/21/2020 Do you or have you ever used smokeless tobacco? Never used smokeless tobacco Information not available 05/20/2019 Are you able to care for yourself independently? Yes Information not available 12/21/2020 Do you or have you ever used e-cigarettes or vape? Never used electronic cigarettes Information not available 05/20/2019 What is your exercise level? Occasional Information not available 12/21/2020 Mental Status None recorded. Family History Relationship Description Onset Age of this Age Resolved Age Notes LastModified by Organization Details LastModified Time Mother Diabetes mellitus asavala Not available 2014 15:55:50 Mother Heart disease asavala Not available 2014 15:55:50 Mother Hypercholest erolemia asavala Not available 2014 15:55:50 Mother Hypertensive disorder asavala Not available 2014 15:55:50 Sister Diabetes mellitus asavala Not available 2014 15:55:50 Brother Diabetes mellitus asavala Not available 2014 15:55:50 Medical History Condition Response High Blood Pressure Y Diabetes Y Acid Reflux (GERD) Y Gynecological HistoryNo gynecological history recorded. Obstetrics History GPAL:G 0 P 0 0 0 0 Immunizations Vaccine Type Date Status Note Provider Nam e and Address Organization Details Recorded Time COVID-19, mRNA, LNP-S, PF, 30 mcg/0.3 mL dose, yumiko-sucrose 2 completed Not Available [facility] 06/16/2023 11:54:39 COVID-19, mRNA, LNP-S, PF, 30 mcg/0.3 mL dose 1 completed Not Available [facility] 06/16/2023 11:54:39 COVID-19, mRNA, LNP-S, PF, 30 mcg/0.3 mL dose 1 completed Not Available [facility] 06/16/2023 11:54:39 Tdap 7 completed Not Available [facility] 08/20/2019 02:34:49 Influenza, split virus, quadrivalent, preservative 8 completed Not Available [facility] 08/20/2019 02:34:52 Influenza, split virus, quadrivalent, PF 8 completed Not Available [facility] 08/20/2019 02:36:24 Tdap 6 completed Not Available [facility] 06/16/2023 11:54:40 Past Encounters Encounter ID Performer Location Encounter Start Date Encounter Closed Date Diagnosis/Indication Diagnosis SNOMED-CT Code Diagnosis ICD10 Code Diagnosis IMO Codes Diagnosis Note [id number] Darlene Salguero MD [facility] (Adult Med) [address] [place] [address] [phone] 0 03/14/2015 15:34:54 03/15/2015 17:21:02 Chest pain 29121346 59 y/o BF who was last seen 05/11/2014 , in the interim she has developed recurrence of her chest pressure, right shoulder pain, back pain, neck pain as well as left hip pain Normal stress test 2013, she needs to follow up with Dr. Martines Continue Aspirin and use NTG prn Diabetes mellitus 45332804 Cramp 95223679 Pain of oulder region 88182804 These all appear to be chronic issues, she had right shoulder surgery for a spur. I have requested volume 1 of her chart Further evaluation on her next visit Tylenol #3 was refilled PAIN contract was discussed Tobacco user [id number] Dez sation was discussed [id number] Darlene Salguero MD [facility] (Adult Med) [address] [place] [address] [phone] 0 07/24/2015 15:58:31 07/25/2015 11:42:33 Chest pain 86865328 R07.9 On her last visit she was advised of the need to see her cardiologi st, she states that no one has contacted her. Normal stress test 2013, she needs to follow up with Dr. Martines. She was given a confirmati on of her appointmen t for 08/29/2015 @ 9:00am Continue Aspirin and use NTG prn Obstructiv e sleep apnea syndrome 67202806 G47.33 She needs to reestablis h care with Dr. Calderon, she has very severe GEORGINA and she states that she called a supply company who in turn have sent multiple requests to this office for a nebulizer, supplies and medication s for a nebulizer. Ms. Rivera sstates that she never ordered this and all she wanted was a CPAP machine. The request was denied and I have explained to her that, she wiill need to direct her request to her sleep physician, Dr. Calderon. Diabetes mellitus 354811 09 E11.9 She has requested diabetic shoes, she has no neuropathi c symptoms and other than her nails, her foot exam today was WNL. Pain of oulder region 43877868 M25.511 These all appear to be chronic issues, she had right shoulder surgery for a spur in [place] I have reviewed the first volume of her chart, there is not much in there with respect to her right shoulder Tylenol #3 was refilled PAIN contract is on file and her UDS was consistent with her medication s. Benign hypertension 1072 5009 I10 Dysthymia 43640414 F34.1 Tobacco user 883288121 Z 72.0 Cessation was discussed [id number] MD Annetta Restrepo (Adult Med) [address] [place] [address] [phone] 0 03/26/2016 10:22:51 03/26/2016 11:58:25 Obstructive sleep apnea syndrome 90123611 G47.33 Some of my referrals, I did not go to, I went to some of them... Not fully compliant with her CPAP, I have encouraged to set her alarm as a reminder and to establish care with a new sleep physician as Dr. Calderon is moving to [place]. Chest pain 03404234 R07. 9 Medication monitoring 39 7414503 Z51.81 Type 2 long betes mellitus without complication 550131549 E11.9 Her annual eye exam was done, her labs are okay. Heel pain 1682386 M79.67 1 Depressive disorder 3548 9007 F32.0 Previously referred, she has refused counseling . She is now taking care of her grand kids, she denies HI or SI but admits to being half depressed I offered her medication s, I will wait. She feels tired and I wonder if her poor compliance with her GEORGINA treatment might not be playing a role. If there is no improvemen t despite compliance and if her workup is negative, one can check her B12 & TSH. Pain of oulder region 28551321 M25.511 She never had the xray done and she did not see the orthopedic surgeon, her Tylenol #3 was not refilled today as I need a more recent UDS as well as more regular follow up visits. A PAIN contract is on file. Screening mammography 24 386220 Z12.31 Tobacco de pendence syndrome 07134143 F17.290 Discussed in detail, she was directed to the Tobacco quitline [id number] MD Annetta Restrepo (Adult Med) [address] [place] [address] [phone] 0 05/28/2016 10:13:43 05/28/2016 16:25:41 Kidney disease 46558783 N08 Discussed Type 2 long shah mellitus without complication 984626721 E11.9 Her annual eye exam was done, her labs are okay. Benign ess ential hypertension 5132817 I10 Hyperkalemia 19290183 E8 7.5 Diabetes mellitus 380648 09 E11.9 She has requested diabetic shoes, she has no neuropathi c symptoms and other than her nails, her foot exam today was WNL. Chronic anemia 050472374 D64.9 [id number] MD Annetta Restrepo (Adult Med) [address] [place] [address] 09/03/2016 11:02:31 09/03/2016 12:02:58 Coronary arteriosclerosis in red devil artery 6427939709 107 I25.10 Essential hypertension 98869812 I10 Type 2 long shah mellitus without complication 233796274 E11.9 Labs as ordered Medication monitoring 39 9971254 Z51.81 Tobacco de pendence in remission 382193388 F17.559 [id number] Geovanny Martinez MD [facility] (Adult Med) [address] [place] [address] 10/13/2016 09:55:04 10/13/2016 11:22:40 Chronic kidney disease stage 3 326200290 N18.3 Her last GFR in September was 49. No acidemia. She did have hyperkalem ia. She is on Lisinopril . Not clear if she has proteinuri a. No edema or volume issues. No uremic symptomato logy at CKD 3a. She was advised to avoid NSAIDs. Keep check on Sodium intake to less than 2000 mg per day. Keep BP within goal and control diabetes. Type 2 long alyssa mellitus 63865686 E11.9 Last A1c was 6.4 % which is within goal. She is on Metformin and can be used at this GFR at current dose. Advise not to increase dosage. Essential hypertension 66175847 I10 BP goal < 140/90 if no proteinuri a, and < 130/80 if proteinuri c. She is at goal at this time Hyperkalemia 45903661 E8 7.5 Low K diet Reduce Lisinopril to 10 mg PO Daily Start Chlorthali done 25 mg , Half tablet daily CMP and urine tests in 7-10 days. History of placement of stent for coronary artery disease 933292929 Z95.5 already on statin. Stopped smoking. [id number] MD Annetta Restrepo (Adult Med) [address] [place] [phone] 0 11/28/2016 09:52:30 11/28/2016 13:19:52 Overweight 611276535 E66.3 Type 2 long betes mellitus without complication 633006177 E11.9 Depressive disorder 3548 9007 F32.0 She is not keen on treatment Musculoskeletal pain 279 470100 M79.1 Obstructiv e sleep apnea syndrome 88475330 G47.33 She was previously referred, the complicati ons of untreated GEORGINA including arrhythmia s, HTN, CVS disease were discussed. Noncomplia nce with treatment 1500665 Z91.19 Medication monitoring 39 1644167 Z51.81 [id number] MD Annetta Restrepo (Adult Med) [address] [place] [address] [phone] 0 04/01/2017 12:15:22 04/01/2017 16:54:13 Epistaxis 09675354 R04.0 She needs dual anticoagul ation for now as she had a cardiac stent placed after her RI in August 2016. She may need to humidify her bedroom Headache 98902511 R51 Renal impairment 5426121 03 N28.9 Type 2 long betes mellitus without complication 715102045 E11.9 Tobacco de pendence in remission 139701402 F17.201 History of myocardial infarction 060970393 I25.2 History of placement of stent for coronary artery disease 499546932 Z95.5 She needs dual anticoagul ation for now Hyperplast ic polyp of intestine 27769698 K63.89 08/25/2012 [id number] MD Anentta Restrepo (Adult Med) [address] [place] [address] [phone] 0 06/24/2017 10:25:19 06/24/2017 11:18:02 Anemia 013755501 D64.9 History of polyp of colon 893124008 Z86.010 Leiomyoma 2012, colonoscop ies are needed every 5 years Immunization refused 275 634588 Z28.20 Trigger fi nger of left hand 7188538967 5398746 M65.30 Pain of right hand 26630 19062 46854 M79.641 Obstructiv e sleep apnea syndrome 81043487 G47.33 She says that she can't find her CPAP machine.Fo llow up with the sleep physician about replacing her machine. Sprain of knee 35714438 S83.92XA GREG bandage Administra tion of diphtheria, pertussis, and tetanus vaccine 577441545 Z23 Screening for malignant neoplasm of breast 541960201 Z12.31 [id number] [facility] [address] [place] [address] [phone] 0 08/05/2017 12:01:24 08/05/2017 13:36:38 History of anemia vitamin B12 deficient 367904968 Z86.2 Iron defic iency anemia 73396036 D50.9 Alopecia 11748429 L65.9 Patchy hair loss on the vertex Overweight 474607275 E66 .3 Influenza vaccine needed 7288660682 106 Z23 Type 2 long betes mellitus without complication 203735078 E11.9 Polyp of colon 94749831 K63.5 Colonoscop y 07/17/2017 , she needs one every year [id number] Darlene Salguero MD [facility] (Adult Med) [address] [place] [address] [id number] 0 11/13/2017 10:53:29 11/13/2017 14:09:31 Musculoskeletal pain 522697903 M79.1 RF Tylenol #3.[place] data, last refill 10/15/2017 and UDS from 09/22/2017 were both reviewed. History of anemia vitamin B12 deficient 037771758 Z86.2 Nodule on finger 0836435 09 R22.31 Sesamoid bones?, cysts? Type 2 long betes mellitus without complication 001521435 E11.9 [id number] Darlene Salguero MD [facility] (Adult Med) [address] [place] [address] [phone] 0 03/16/2018 15:56:12 03/17/2018 08:01:29 Musculoskeletal pain 330002250 M79.1 RF Tylenol #3.[place], last refill 02/18/2018 and UDS from 09/22/2017 were both reviewed.A n agreement is on file Neuropathy 681676803 G62 .9 Type 2 long bettoshia mellitus without complication 451246705 E11.9 Renal insufficiency 7231 53167 N28.9 Obstructiv e sleep apnea syndrome 81760183 G47.33 She says that she can't find her CPAP machine.Fo llow up with the sleep physician about replacing her machine. [id number] MD Annetta Restrepo (Adult Med) [address] [place] [address] [phone] 0 04/06/2018 12:04:29 04/06/2018 12:56:41 Epistaxis 76817837 R04.0 She needs dual anticoagul ation as she had a cardiac stent placed after her RI in August 2016, I will hold her Aspirin for now, check her labs and have her seen by ENT. Throat irritation 025691 007 R07.0 Type 2 long betes mellitus without complication 751082642 E11.9 Immunization refused 275 007838 Z28.20 [id number] MD Annetta Restrepo (Adult Med) [address] [place] [address] [phone] 0 05/06/2018 09:53:42 05/07/2018 08:59:59 Administration of influenza vaccine 05809638 Z23 Bleeding from nose 26079 6005 R04.0 Resolved Renal insufficiency 7231 70134 N28.9 History of placement of stent for coronary artery disease 215305518 Z95.5 She needs dual anticoagul ation, her Aspirin is on hold due to her epistaxis for which she has been sen by ENT and for which she had possible cautery.I think she can safely start aspirin 81 mg Anemia 072195880 D64.9 Screening for malignant neoplasm of breast 941699502 Z12.31 Obstructiv e sleep apnea syndrome 21900956 G47.33 She started her CPAP last night [facility]clin[facility] l hypothyroidism 04157663 E03.9 Nodule on finger 4369854 09 R22.31 Sesamoid bones?, cysts? Trigger fi nger of right hand 9412069200 9525078 M65.30 [id number] MD Annetta Restrepo (Adult Med) [address] [place] [address] [phone] 0 08/30/2018 10:14:42 08/31/2018 08:10:44 History of polyp of colon 163726294 Z86.010 Leiomyoma 2012.Colon ic polyp 07/17/2017 Q 1 year Pain in ri ght lower limb 581715195 M79.604 Body mass index 40+ - severely obese 629016206 Z68.41 Type 2 long betes mellitus without complication 976746326 E11.9 She had bariatric surgery in the sNadir was 185 lbs History of bariatric surgical procedure 519548147 Z98.84 [id number] MD Annetta Restrepo (Adult Med) [address] [place] [address] [phone] 0 10/11/2018 11:50:01 10/12/2018 09:09:47 Osteoarthritis of knee 728710760 M17.11 Osteoarthr itis of joint of hand 08941918 M19.049 Trigger fi nger of right hand 5309553136 7460966 M65.30 M65.321 Musculoskeletal pain 279 183988 M79.10 [place] 09/16/2018[place] DS 08/05/2018A CDA is on file Type 2 long betes mellitus without complication 549651767 E11.9 She had bariatric surgery in the sT karan was 185 lbsAdd Januvia to Metformin [id number] [facility] [address] [place] [address] [id number] 0 01/11/2019 15:04:16 01/11/2019 16:19:28 Pain in finger 95046119 M79.644 The previous xray from 2018 suggested OA Chronic anemia 536304571 D64.9 Type 2 long betes mellitus without complication 221749672 E11.9 She had bariatric surgery in the sT karan was 185 lbsAdd Januvia to Metformin Long-term drug therapy 111437374 Z79.538 [id number] MD Annetta Restrepo (Adult Med) [address] [place] [address] [phone] 0 05/20/2019 11:37:53 05/20/2019 12:17:18 Influenza vaccination declined 135360802 Z28.21 Lumbar radiculopathy 128 434861 M54.16 She has a history of moderate DDD of the thoracic and lumbar spine on the MRI done in 2009.Short course of Prednisone .MRI Screening for malignant neoplasm of breast 671849247 Z12.31 [id number] MD Annetta Restrepo (Adult Med) [address] [place] [address] [id number] 0 09/15/2019 09:43:09 09/16/2019 08:04:57 Degeneration of lumbar intervertebral disc 31700050 M51.36 Stenosis o f intervertebral foramina 0484825313 09 M99.9 Reduced mobility 4505950 Z74.09 She at this time is not interested in a rollator/w alker. Depressive disorder 3548 9007 F32.0 She is not keen on treatment, seeing a therapist or a psychiatri st. Cymbalta would have been an excellent option for her pain and her mood disorder, she is not keen. Musculoskeletal pain 279 680403 M79.10 [place] 08/11/2019[place] DS 06/15/2019 Her CDA is current, 06/15/19Op iate patient education leaflet was providedCo christophe Tyl #3Cymbalta would have been an excellent option for her pain and her mood disorder, she is not keen. Pt education materials about Cymbalta was provided and side effects were discussed. Pain management Chronic back pain 819680 002 G89.29 Influenza vaccination declined 088139973 Z28.21 [id number] MD Annetta Restrepo (Adult Med) [address] [place] [address] [phone] 0 03/30/2020 14:56:53 04/02/2020 15:09:03 Chronic back pain 740149710 G89.29 Type 2 long betes mellitus without complication 818508574 E11.9 Medication monitoring 39 4092176 Z51.81 Polyp of colon 90633049 K63.5 Colonoscop y 09/14/2018 Q 2 years [id number] MD Annetta Restrepo (Adult Med) [address] [place] [address] [phone] 0 07/12/2020 07:58:05 07/13/2020 08:41:07 Chronic anemia 239321490 D64.9 Colonoscop y 09/2018 Q 2 yearsHer chronic anemia is probably related to her CRI Influenza vaccination declined 913894884 Z28.21 History of polyp of colon 952947535 Z86.010 Leiomyoma 2012.Colon ic polyp 07/17/2017 Q 1 yearColoni c polyp 09/2018 Q 2 years Viral screening 47801661 4 Z11.59 Screening for malignant neoplasm of breast 493035285 Z12.31 Type 2 long betes mellitus without complication 797266711 E11.9 Ex-smoker 8501640 Z87.89 1 Hyperkalemia 11394429 E8 7.5 [id number] MD Annetta Restrepo (Adult Med) [address] [place] [address] [id number] 0 12/21/2020 10:05:28 12/24/2020 07:56:30 Chronic anemia 492957266 D64.9 Colonoscop y 09/2018 Q 2 yearsHer chronic anemia is probably related to her CRI Calcificat ion of coronary artery 403245383 I25.84 Asymptomat ic Follow up with Dr Martines Unstable knee 790684165 M25.369 Eruption 511111232 R21 Type 2 long betes mellitus without complication 282005809 E11.9 Vaccine de clined by patient 2970726788 02 Z28.21 She has agreed to get her Pneumonia vaccine next week. [id number] [facility] [address] [place] [address] [phone] 0 07/22/2021 11:56:40 07/23/2021 08:02:10 History of placement of stent for coronary artery disease 665976055 Z95.5 Follow up was apparently done, I have requested a note. Loss of hair 765616892 L 65.9 Meds?Check labs Type 2 long betes mellitus without complication 243082141 E11.9 Medication monitoring 39 6963647 Z51.81 Intermitte nt claudication 91553283 I73.9 Vitamin D deficiency 347 09378 E55.9 Pain of ri ght shoulder joint 1638422763 8095951 M25.708 [id number] MD Annetta Restrepo (Adult Med) [address] [place] [address] [id number] 0 08/21/2021 11:52:03 08/22/2021 06:30:35 Neurogenic claudication 610135614 M48.062 MRI Suki has a history of chronic lower back pain with Benign hypertension 1072 5009 I10 Loss of hair 535369735 L 65.9 Meds?Check labs [id number] CHERISE GÓMEZ (Peds) [address] [place] [address] [phone] 0 08/26/2021 11:57:41 09/02/2021 05:14:13 Administration of SARS-CoV-2 mRNA vaccine 9761690404 Z23 [id number] MD Annetta Restrepo (Adult Med) [address] [place] [address] [id number] 0 01/02/2022 09:38:10 01/05/2022 22:59:45 Anti-nuclear factor detected 893944021 R76.8 Repeat, the initially ordered due to her hair loss which has remained stable. Uncontroll ed type 2 diabetes mellitus 432592718 E11.65 Ex-smoker 3379007 Z87.89 1 Screening for malignant neoplasm of breast 691659670 Z12.31 Chronic anemia 449341682 D64.9 Colonoscop y 09/2018 Q 2 yearsHer chronic anemia is probably related to her CRI [id number] MD Annetta Restrepo (Adult Med) [address] [place] [address] [phone] 04/22/2022 10:28:11 04/23/2022 10:06:55 Body mass index 40+ - severely obese 251487264 Z68.41 Chronic anemia 434396473 D64.9 Colonoscop y 09/2018 Q 2 yearsHer chronic anemia is probably related to her CRI Obstructiv e sleep apnea syndrome 63600736 G47.33 She has a history of GEORGINA and was previously on CPAP, she needs to establish care with a new sleep physician. d Neurogenic claudication 942595492 M48.062 MRI needed and cleared by her cardiologi st who apparently sent a letter to the Imaging facility confirming that her Synergy stent are MRI compatible . .She has a history of chronic lower back pain with Osteoarthr itis of knee 774931381 M17.11 Influenza vaccination declined 546676344 Z28.21 History of placement of stent for coronary artery disease 742942678 Z95.5 Synergy stent (MRI compatible ) [id number] MD Annetta Restrepo (Adult Med) [address] [place] [address] [phone] 0 06/03/2022 11:25:24 06/04/2022 10:39:35 Chronic anemia 397718878 D64.9 Colonoscop y 09/2018 Q 2 yearsHer chronic anemia is probably related to her CRI Neurogenic claudication 131698684 M48.062 The MRI was denied by her insurance company, pending PT 04/22/2022M RI needed and cleared by her cardiologi st who apparently sent a letter to the Imaging facility confirming that her Synergy stent are MRI compatible . .She has a history of chronic lower back pain with Influenza vaccination declined 624990027 Z28.21 Diabetes mellitus 431171 09 E11.9 Immunization advised 310 816184 Z71.9 Renal insufficiency 7231 42042 N28.9 [id number] MD Annetta Restrepo (Adult Med) [address] [place] [address] [phone] 12/04/2022 09:04:03 12/08/2022 09:08:45 Cardiovascular stress test abnormal 288764531 R94.39 She apparently had a CC and stents, we will call for the records.Sh cherelle needs to clarify the dose of the Metoprolol that she is taking, she states that she was told to start the 50 mg dose and she has continued this in addition to the 12.5 mg she was taking before. Her refill history does not support this. Follow-up visit 54137859 9 Z09 Periorbital edema 573752 00 H05.229 Allergy vs Infection. Stop Cephalexin as there has been no improvemen tStop applying rubbing alcohol and Campho pheniqueBe nadrylOpht halmologyA ugmentin, side effects were discussed Excoriation of skin 9246 93733 T14.8XXS History of placement of stent for coronary artery disease 078364038 Z95.5 Previous Synergy stent (MRI compatible ). Medication review done by doctor 687935635 Z76.89 [id number] MD Annetta Restrepo (Adult Med) [address] [place] [address] [phone] 12/25/2022 10:58:58 12/26/2022 12:21:32 Chronic anemia 143202601 D64.9 Labs 12/24/2022 Hb 8.6/Hct 29Possibly from her Epistaxis, but she is also B12 deficient with low/nl Ferritin levels and CRI 12/23/2022 Labs 12/18/2022, Hb 8.3, Hct 28, Ferritin 26, Iron 28, TIBC 355Labs 12/04/2022, Hb 8.5/26.9, Creat 2.0Colonos copy 01/30/2021, Q 5 yearsHer chronic anemia is probably related to her CRIHowever her low normal Ferritin is of concern and I will refer her back to GIAppointm ent 12/31/2022 Renal insufficiency 7231 49965 N28.9 Diabetes mellitus 697565 09 E11.9 Immunization advised 310 291701 Z71.9 History of placement of stent for coronary artery disease 625435607 Z95.5 Previous Synergy stent (MRI compatible ). Bleeding from nose 90745 6005 R04.0 Resolved Disorder o f vitamin B12 274916155 E53.8 SARS-CoV-2 vaccination declined 1327769072 Z28.21 [id number] Darlene Salguero MD [facility] (Adult Med) [address] [place] [address] [phone] 01/22/2023 11:11:18 01/23/2023 12:58:35 Chronic anemia 835053499 D64.9 Multifacto rial; Epistaxis, CRI. Hx of B12 deficiency and possibly GI.She needs dual antiplatel et therapy (YVON) in view of her cardiac stents,ENT as referredGI evaluation especially in view of her bariatric surgery Note from 12/23/2022L abs 12/18/2022, Hb 8.3, Hct 28, Ferritin 26, Iron 28, TIBC 355Labs 12/04/2022, Hb 8.5/26.9, Creat 2.0Colonos copy 01/30/2021, Q 5 yearsHer chronic anemia is probably related to her CRIHowever her low normal Ferritin is of concern and I will refer her back to GIAppointm ent 12/31/2022 Diabetes mellitus 308291 09 E11.9 HBA1C 8.1% on 12/04/2022, previously 7.8% on 2O n Farxiga, Januvia and MetforminS tart Ozempic History of placement of stent for coronary artery disease 101874825 Z95.5 She will benefit from Ozempic to reduce cardiovasc ular events as she is high risk. This is an FDA indication .Synergy stent (MRI compatible ). Bleeding from nose 54505 6005 R04.0 Intermitte nt Ex-smoker 4018841 Z87.89 1 Disorder o f vitamin B12 088334361 E53.8 History of exposure to second hand smoke 967434520 Z77.22 Discourage d [id number] Naveen Bailey MD [facility] [address] [place] [address] 02/17/2023 14:37:43 02/18/2023 09:22:14 Anterior epistaxis 436453891 R04.0 start ointment him follow back if it is not improving [id number] MD Annetta Restrepo (Adult Med) [address] [place] [address] [phone] 03/10/2023 16:04:46 03/11/2023 12:55:18 Chronic anemia 858286858 D64.9 Her Hb and HCT have both improved OV 01/22/2023M ultifactor ial; Epistaxis, CRI. Hx of B12 deficiency and possibly GI.She needs dual antiplatel et therapy (YVON) in view of her cardiac stents,ENT as referredGI evaluation especially in view of her bariatric surgery Note from 12/23/2022L abs 12/18/2022, Hb 8.3, Hct 28, Ferritin 26, Iron 28, TIBC 355Labs 12/04/2022, Hb 8.5/26.9, Creat 2.0Colonos copy 01/30/2021, Q 5 yearsHer chronic anemia is probably related to her CRIHowever her low normal Ferritin is of concern and I will refer her back to GIAppointm ent 12/31/2022 Diabetes mellitus 009348 09 E11.9 On Ozempic 0.5 mg weekly OV 01/22/2023H BA1C 8.1% on 12/04/2022, previously 7.8% on 2O n Farxiga, Januvia and MetforminS tart Ozempic [id number] MD Annetta Restrepo (Adult Med) [address] [place] [phone] 06/22/2023 15:26:14 06/23/2023 09:39:50 Chronic anemia 136688345 D64.9 OV 03/10/2023 Her Hb and HCT have both improved OV 01/22/2023M ultifactor ial; Epistaxis, CRI. Hx of B12 deficiency and possibly GI.She needs dual antiplatel et therapy (YVON) in view of her cardiac stents,ENT as referredGI evaluation especially in view of her bariatric surgery Note from 12/23/2022L abs 12/18/2022, Hb 8.3, Hct 28, Ferritin 26, Iron 28, TIBC 355Labs 12/04/2022, Hb 8.5/26.9, Creat 2.0Colonos copy 01/30/2021, Q 5 yearsHer chronic anemia is probably related to her CRIHowever her low normal Ferritin is of concern and I will refer her back to GIAppointm ent 12/31/2022 Diabetes mellitus 427110 09 E11.9 On Ozempic 0.5 mg weeklyHBA1 C 6.4 OV 01/22/2023H BA1C 8.1% on 12/04/2022, previously 7.8% on 2O n Farxiga, Januvia and MetforminS tart Ozempic Screening for malignant neoplasm of breast 405680328 Z12.31 Malaise and fatigue 2717 96122 R53.83 History of anemia vitamin B12 deficient 296127751 Z86.2 Obstructiv e sleep apnea syndrome 69710035 G47.33 She has a history of GEORGINA and was previously on CPAP, she still needs to establish care with a new sleep physician. Pain in bi lateral legs 1435639343 1406305 M79.604 M79.605 Influenza vaccination declined 489210320 Z28.21 [id number] Darlene Salguero MD [facility] (Adult Med) [address] [place] [address] 01/18/2024 11:55:50 01/19/2024 13:58:30 Chronic anemia 146378169 D64.9 Labs 07/13/2023 Hb 11.6, Hct 37OV 03/10/2023 OV 06/22/2023 Her Hb and HCT have both improved OV 01/22/2023M ultifactor ial; Epistaxis, CRI. Hx of B12 deficiency and possibly GI.She needs dual antiplatel et therapy (YVON) in view of her cardiac stents,ENT as referredGI evaluation especially in view of her bariatric surgery Note from 12/23/2022L abs 12/18/2022, Hb 8.3, Hct 28, Ferritin 26, Iron 28, TIBC 355Labs 12/04/2022, Hb 8.5/26.9, Creat 2.0Colonos copy 01/30/2021, Q 5 yearsHer chronic anemia is probably related to her CRIHowever her low normal Ferritin is of concern and I will refer her back to GIAppointm ent 12/31/2022 Diabetes mellitus 180790 09 E11.9 HBA1C 6.5% on 07/13/2023 , on Ozempic 1 mg weekly OV 06/22/2023 On Ozempic 0.5 mg weeklyHBA1 C 6.4 OV 01/22/2023H BA1C 8.1% on 12/04/2022, previously 7.8% on 2O n Farxiga, Januvia and MetforminS tart Ozempic Chronic low back pain 27 2851104 M54.50 PT Renal insufficiency 7231 82528 N28.9 [id number] MD Annetta Restrepo (Adult Med) [address] [place] [address] [phone] 0 04/08/2024 11:16:52 04/12/2024 10:11:42 Blood in urine 81209767 R31.9 UTI?Start BactrimEff ect of Farxiga?R/ O other causes of her hematuria with a CT. Influenza vaccination declined 868575817 Z28.21 [id number] MD Annetta Restrepo (Adult Med) [address] [place] [address] [phone] 0 08/15/2024 15:33:33 08/19/2024 12:22:53 Screening mammography 88618966 Z12.31 Diabetes mellitus 778027 09 E11.9 HBA1C 6.4% on 05/26/2024 Chronic insomnia 2061174 04 F51.04 MelatoninS leep hygeine [id number] MD Annetta Restrepo (Adult Med) [address] [place] [address] [phone] 0 02/27/2025 10:55:38 02/28/2025 12:37:14 Diabetes mellitus 14407482 E11.9 HBA1C 6.2% on 02/09/2025, 6.4% on 05/26/2024 Chronic insomnia 5964329 04 F51.04 Doxepin may be an option after she is evaluated by sleep medicine Obstructiv e sleep apnea syndrome 38674878 G47.33 Complicati ons of untreated GEORGINA were discussed in [facility] medicine OV 06/22/2023 She has a history of GEORGINA and was previously on CPAP, she still needs to establish care with a new sleep physician. Overweight in adulthood with body mass index of 25 or more but less than 30 470394168 E66.3 Z68.29 9563486737 Overweight 301894897 E66 .3 Musculoskeletal pain 279 885400 M79.10 Acute or PRN use onlyDiscus sed Note from 02/20/2025I LPMP reviewed, last RF was on 01/23/2025. UDS 07/11/2024 Her CDA is current, 07/13/2024 Opiate patient education leaflet was previously provided Continue Tyl #3 to be used PRN onlyJosi has been to physical therapy 05/26/2022 and was referred to pain management UDS and CDA needed Chronic ki dney disease stage 3B 592765801 N18.32 2720069059 Therapeuti c drug monitoring assay 28921112 Z51.81 195851 Mammography abnormal 168 214023 R92.8 61176968 An addendum was created on 01/05/2025 and she is now resigned to annual mammograms .Abnormal MMG 01/03/2025, L. breast asymmetry. Diagnostic studies needed [id number] MD Annetta Restrepo (Adult Med) [address] [place] [address] [phone] 05/29/2025 11:08:46 05/30/2025 12:02:51 Adult health examination 324978462 Z00.00 Health Risk Assessment collected and reviewed Musculoskeletal pain 279 661314 M79.10 Acute or PRN use onlyDiscus sed Note from 7/21/2025I LPMP reviewed, last RF was on 01/23/2025. UDS 07/11/2024 Her CDA is current, 07/13/2024 Opiate patient education leaflet was previously provided Continue Tyl #3 to be used PRN onlyShe has been to physical therapy 05/26/2022 and was referred to pain management UDS and CDA needed Neck pain 54171136 M54.2 36213 Diabetes mellitus 974516 09 E11.9 HBA1C 6.2% on 02/09/2025, 6.4% on 05/26/2024 Health Concerns Section Related Observation LastModified by Organization Detai ls LastModified Time None Recorded Concern Status LastModified by Organization Details LastModified Time None Recorded Advance Directives Directive N: Payers Insurance Date Sequence Insurance Name Policy Number Policy Rosas Covered Member ID Rosas Member ID Guarantor Name 03/10/2023 3 [place] Belle Rivera [id number] Belle Rivera 05/26/2025 [place] Belle Rivera [id number] Belle Rivera 12/20/2023 1 [facility] ON OR AFTER 08/03/2020 - DUAL ELIGIBLE (MEDICARE REPLACEMENT/ADVAN TAGE - HMO) [id number] Belle Rivera [id number] Belle Rivera 12/22/2022 1 UNSPECIFIED SERENE T PAYOR Belle Rivera 03/10/2023 1 [facility] ON OR AFTER 08/03/2020 - DUAL ELIGIBLE (MEDICARE REPLACEMENT/ADVAN TAGE - HMO) [id number] Belle Rivera [id number] Belle Rivera 03/10/2023 2 [place] WHEN MEDICARE OR MEDICARE REPLACEMENT PRIMARY) Sandra Rivera [id number] Belle Rivera 03/10/2023 3 [facility] KESHIA Davidson (MEDICARE REPLACEMENT HMO) Belle Rivera [id number] Belle Rivera 03/10/2023 2 [facility] [employer] (MEDICAID HMO) Belle Rivera [id number] 5 Belle Rivera 03/10/2023 [place] [facility] Belle Cason Rivera [id number] 5 Belle Rivera 03/10/2023 2 [place] OR [place]IC[place] REPLACEMENT PRIMARY) Sandra Rivera [id number] Belle Rivera 03/10/2023 [place] [facility] Belle Rivera [id number] Belle Rivera 03/10/2023 1 [place] Belle Yoav Rivera [id number] 5 Belle Rivera 12/20/2023 2 [employer] [place] (MEDICARE REPLACEMENT/ADVAN TAGE) Belle Rivera [id number] Belle Rivera 03/10/2023 1 [facility] (MEDICARE REPLACEMENT HMO) Belle Rivera [id number] Belle Rivera 03/10/2023 3 [facility] - DOS ON OR AFTER 2020 - DUAL ELIGIBLE (MEDICARE REPLACEMENT/ADVAN TAGE - HMO) Belle Rivera [id number] 5 Belle Rivera 05/26/2025 1 [facility] E (MEDICARE REPLACEMENT/ADVAN TAGE - PPO) [id number] Belle Cason Rivera [id number] Belle Rivera 05/26/2025 2 [place] WHEN [place] OR MEDICARE REPLACEMENT PRIMARY) Sandra Rivera [id number] Belle Rivera 03/10/2023 2 [employer] [place] (MEDICARE REPLACEMENT/ADVAN TAGE) Belle Rivera [id number] Belle Rivera Notes Date Note Type Note Provider Name and Address Organization Details Recorded Time 4 text/html Diabetes F/UReported by PatientHPIFor associated symptoms, patient reportsweight loss (20 lbs)but reportsno weight gain,no dizziness,no sweats,no headaches,no confusion,no increased thirst,no increased appetite,no increased urination,no blurred vision,no numbness of feet, andno calluses on feet. For labs, patient reportslast a1c result: 6.5. For context, patient reportstaking aspirin daily,not missing doses of medications, andno side effects from medications. Medicare Annual Wellness VisitReported by PatientSocial/Behavioral HistoryFor physical activity, patient reportsdoes not exercise on a regular basisbut reportsgood physical condition. For diet and nutrition, patient reportshealthy dietanddiscussed vitamin and supplement use. For fracture risk, patient reportsno history of fractures,no recent explained fracture,no sudden unexplained fractures, andno previous musculoskeletal injuries.Mental Status:For depression risk, patient reportsnever feels sad, empty, or tearful,no loss of interest in activities,no significant changes in weight,no sleep disturbances or insomnia,no agitation,no loss of energy,no feelings of worthlessness or guilt,no thoughts of suicide,no history of depression, andno history of mood disorders. For orientation, patient reportsno disorientation to time,no disorientation to date, andno disorientation to place. For concentration and memory, patient reportsno decreased concentrating ability,no memory lapses or loss, anddoes not forget words. For speech/motor difficulties, patient reportsno speech difficulties,no difficulty expressing formulated concepts,no difficulty with fine manipulative tasks,no difficulty writing/copying,no slowed reaction time, anddoes not knock things over when trying to pick them up.Functional AbilityFor vision, patient reportsworse with distance. For hearing, patient reportsno loss of hearing. For activities of daily living, patient reportsable to bathe with limited or no assistance,able to contol urination and bowels,able to dress with limited or no assistance,able to feed self with limited or no assistance,able to get out of chair or bed with limited or no assistance,able to groom with limited or no assistance, andable to toilet with limited or no assistance. For instrumental activities of daily living, patient reportsable to do house work with limited or no assistance,able to grocery shop with limited or no assistance,able to manage medications with limited or no assistance,able to manage money with limited or no assistance,able to prepare meals with limited or no assistance, andable to use the phone with limited or no assistance. For falls risk assessment, patient reportsno frequent falls while walking,no fall in the past year,no fall since last visit, andno dizziness/vertigo. For home safety, patient reportsno unsafe adrianna hazzards,no unsafe stairs,no unsafe gas appliances,working smoke/co detectors,wears protective head gear for biking/high velocity,use of seatbelts,no vision or hearing loss while driving,no fire arms,has hand bars in the bathroom/shower, andgood lighting in the home.ROS as noted in the HPI My legs still bother meCheck up Ms Rivera complains of pain around the buttocks that radiates down the back of her legs, she has a history of chronic LBP and had negative venous US of both legs. Darlene Salguero MD Attn: Accounting, [facility], [place], [address], [facility] 01/18/2024 13:46:42 4 text/html Diabetes F/UReported by PatientHPIFor labs, patient reportslast a1c result: 6.4%. For context, patient reportstaking aspirin daily,not missing doses of medications, andno side effects from medications. For associated symptoms, patient reportsno weight gain,no weight loss,no dizziness,no sweats,no headaches,no confusion,no increased thirst,no increased appetite,no increased urination,no blurred vision,no numbness of feet, andno calluses on feet.ROS as noted in the HPI Every time I pee, you could tell like there was a little bloodA little burning in the bottom of my stomach Ms Rivera presents with arturo blood in her urine, she denies any dysuria but admits to some vague suprapubic symptoms. She has no history of nephrolithiasis and there is no fever or flank pain. Darlene Salguero MD Attn: Accounting, [address] [facility], [place], [address], [facility] 04/08/2024 12:06:16 5 text/html InsomniaReported by PatientHPIFor severity, patient reportsworseningbut reportssevere. For quality, patient reportssymptoms worse in the evening. For duration, patient reportsfrequent. For onset/timing, patient reportsgradual onset. For associated symptoms, patient reportsno anxiety,no snoring,no depression,no known sleep apnea,no pain,no dyspnea,no urinary frequency, andlegs do not feel restless. Diabetes F/UReported by PatientHPIFor associated symptoms, patient reportsweight gain (7 lbs)but reportsno weight loss,no dizziness,no sweats,no headaches,no confusion,no increased thirst,no increased appetite,no increased urination,no blurred vision,no numbness of feet, andno calluses on feet. For labs, patient reportslast a1c result: 6.4%. 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 She has started walking on a treadmill and complains of aching and sore muscles. Darlene Salguero MD Attn: Accounting,[address] [place], [address], [place] [facility] 08/15/2024 16:53:58 5 text/html InsomniaReported by PatientHPIFor severity, patient reportsworseningbut reportssevere. For associated symptoms, patient reportssleep apneabut reportsno anxiety,no snoring,no depression,no pain,no dyspnea,no urinary frequency, andlegs do not feel restless. For quality, patient reportssymptoms worse in the evening. For onset/timing, patient reportsgradual onset. For modifying factors, patient reportscaffeine intake. For duration, (years). Diabetes F/UReported by PatientHPIFor associated symptoms, patient reportsweight loss (14 lbs)but reportsno weight gain,no dizziness,no sweats,no headaches,no confusion,no increased thirst,no increased appetite,no increased urination,no blurred vision,no numbness of feet, andno calluses on feet. For labs, patient reportslast a1c result: 6.2%. For context, patient reportsnormal range of home blood sugars (in the low 100s),seeing eye doctor regularly,checking feet regularly,taking aspirin daily,not missing doses of medications, andno side effects from medications.ROS as noted in the HPI I go to bed and wake up early and I can't go back Ms Rivera continues to have difficulty initiating and maintaining sleep.She continues on Tylenol #3 for her chronic pain, I have explained to her that I will only be able to prescribe this on a PRN basis or for short periods of time only.She has a history of severe GEORGINA (07/25/2015 sleep study) and even though she has lost weight, she has not followed up, despite several referrals to sleep medicine. Darlene Salguero MD Attn: Accounting,[address] [facility], [place], [address], [facility] 02/27/2025 14:01:32 5 text/html MAW 2Reported by PatientSocial/Behavioral HistoryFor fracture risk, patient reportsprevious musculoskeletal injuries. For diet and nutrition, patient reportshealthy dietanddiscussed vitamin and supplement use.Mental Status:For concentration and memory, patient reportsno decreased concentrating ability,no memory lapses or loss, anddoes not forget words. For speech/motor difficulties, patient reportsno speech difficulties,no difficulty expressing formulated concepts,no difficulty with fine manipulative tasks,no difficulty writing/copying,no slowed reaction time, anddoes not knock things over when trying to pick them up.Functional AbilityFor vision, patient reportsworse near. For home safety, patient reportsdoes not have hand bars in the bathroom/showerbut reportsno unsafe adrianna hazzards,no unsafe stairs,working smoke/co detectors,practicing 'safer sex',no fire arms, andgood lighting in the home. For hearing, patient reportsno loss of hearing. For activities of daily living, patient reportsable to bathe with limited or no assistance,able to contol urination and bowels,able to dress with limited or no assistance,able to feed self with limited or no assistance,able to get out of chair or bed with limited or no assistance,able to groom with limited or no assistance, andable to toilet with limited or no assistance. For instrumental activities of daily living, patient reportsable to do house work with limited or no assistance,able to grocery shop with limited or no assistance,able to manage medications with limited or no assistance,able to manage money with limited or no assistance,able to prepare meals with limited or no assistance, andable to use the phone with limited or no assistance. For falls risk assessment, patient reportsfall(s) in the past year 3andfall(s) since last visit0.ROS as noted in the HPI Can I get a muscle relaxer or something?I want you to check my neck, I don't know if it is a knot or it is supposed to be there? Ms Rivera is here for her MAWV, she would like a muscle relaxer for her pain and wonders about a protrusion in her lower neck. 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 Helper Status 03/09/20 24 1 DELETED Fetus Data First Name Last Name Admitted to NICU Weight (g) Sex Living Outcome Pediatric Complications Fetus ID Race Codes Race Delivery Type [id number] Timmy Calculation Initial Timmy Date Initial Exam Date Initial Exam Provider Initial Ultrasound Date Last Menstrual Period Date Ultra Sound Weeks Gestation 03/09/2024 0 Eighteen To Twenty Week Timmy Update Ultra Sound Date Fundal Height At Umbil Quickening Date Ultra Sound Latest Weeks Gestation Final Timmy Confirmed By Final Timmy Confirmed Date Final Timmy Date Ultra Sound Latest Days Gestation 0 0 Menstrual History Last Menstrual Date Menses Monthly On Bcp Conception Prior Menses Frequency Hcg Plus Date Menarche Onset Age Delivery Information Delivery Date Delivery Type Labor Anesthesia Weeks Gestation Incision Type Labor Labor Length Hrs Delivered By Post Complications Tubal Sterilization Discharge Date Comments Discharge Information Feeding Method Contraceptive Method Maternal HG B and HCT Levels
--- OUTSIDE RECORDS SUMMARY | 2025-07-23 14:25 | XMS_ITS | Continuity of Care Document ---
Author Organization [place] [facility] [place] Pulmonology [place] Address [address] [address] Care Team Providers Care Cereal Miller Name Role Phone DARLENE SALGUERO Referring Provider [phone] Assessment Encounter Date Assessment Date Assessment LastModified by Organization Details LastModified Time 05/31/2025 05/31/2025 Assessment: Rhinitis Moderate OSAHS, AHI = 26 PLMD Plan: The following were reviewed and explained to the patient: [facility] split night sleep study 10/07/15 AHI = 23, REM AHI = 60, ResMed medium wide Hawley FX Pippa nasal mask @ 8 cmH2O, PLMI = 8 Ken split night sleep study 04/05/25 sleep onset = 2 minutes, REM onset = 22 minutes, AHI = 26, REM AHI = 50, ResMed small AirTouch F20 full face mask @ 7 cmH2O, PLMI = 52 Non-pharmacologic therapy options for periodic limb movement disorder include avoidance of aggravating drugs and substances, mental alerting activities, short daily hemodialysis for patients in renal failure, exercise, leg massage, stretching calf muscles, use of a weighted blanket and applied heat. Patient will cut down on alcohol consumption, nicotine use and caffeine intake. We will check BUN, Creatinine, Vitamin E, Vitamin B12, RBC folate, Iron, TIBC, Ferritin, ESR, Magnesium, Hgb and Hct levels. Educated the patient on problems and solutions associated with positive airway pressure (PAP) use. Difficulty tolerating pressure, mask leaks, intolerance of interface, nasal congestion, claustrophobic response, dry mouth, and unintentional mask removal during sleep were covered. Patient experiences nasal congestion. Patient will use nasal saline spray before starting PAP, use heated PAP humidifier, clean/air dry humidifier reservoir daily, use nasal steroid spray, use ipratropium bromide nasal spray if rhinitis/rhinorrhe a is present or obtain an oronasal/oral interface. Dry mouth is a normal occurrence for people who just start out on PAP therapy because they are not used to air blowing in to the throat to hold open. Dry mouth is exacerbated for people who wear nasal PAP mask and whose jaw drops open during sleep. Not only does this create a much less efficient therapy because of leakage, it also causes dry mouth. There are a couple solutions to help prevent this type of problem. A simple solution would be to wear a chinstrap which essentially holds the jaw in place. A second solution would be a switch to a full face mask which covers both the nose and mouth. Although this is another easy solution, using a full face mask for some could seem claustrophobic or confining. There is no silver bullet solution as no single mask is right for everybody. Sometimes it takes a bit of experimentation to find a PAP mask which best meets the patient's needs as well as fits comfortably. Another tactic is to use a humidifier on your PAP machine. Most new PAP machines have integrated humidifiers. Humidification is lowe when dealing with symptoms of dry mouth because the humidifier can supply both warm and room temperate air. Even a small amount of humidity in the airflow will help nasal passages to stay hydrated. If a person is using both a full face mask and a PAP machine with a heated humidifier and is still experiencing dry mouth, an ill-fitted PAP mask might be causing the problem. Leakage can be caused by a mask that is to large or small, the wrong style mask, the cushion is degraded or simply because the mask's straps aren't adjusted correctly. If leakage occurs, dry air from the room can leak in while humidification escapes. The result is reduced humidification within the circuit and resulting in dry throat and mouth. Finally, beyond factors involving the PAP machine and mask, dry mouth can also be caused or worsened by dehydration. The general recommendation to during eight 8 oz. glasses of water a day might be too little for many people. When people drink large amounts of coffee or other caffeine beverages, or sweat a lot during the day, making sure to rehydrate is an important part of PAP therapy. ResMed Air Sense 11 auto set unit with heated humidifier, supplies and ResMed small AirTouch F20 full face mask @ 7 cmH2O ordered. Further titration will be based on clinical response. Provided the patient with a list of local home care stores where positive airway pressure (PAP) units, accoutrement, and services are available. Home care store selection is based on patient's insurance carrier. Patient will setup an appointment with [facility] for supplies and pressure adjustments. A major predictor of success with use of PAP is follow-up with both the respiratory supplier and the treating physician. The respiratory supplier optimally will follow-up within two weeks after starting use while the treating physician optimally will follow-up within 90 days after starting therapy to assess adherence and effectiveness of treatment. The download results can show the treating physician information about adherence to treatment, residual AHI while on treatment and presence of large mask leakage. This information is especially helpful if the patient has residual sleepiness despite treatment. General information on sleep disordered breathing, evaluation of sleep disordered breathing, treatment with PAP therapy, and living with PAP therapy were covered. We discussed with the patient the impact of weight on: Sleep disordered breathing Hypertension Hyperlipidemia DM CAD MIKALA CKD Lumbar radiculopathy Bilateral knee OA We discussed with the patient the benefit of PAP therapy on: Sleep disordered breathing Depression Postnasal drip Hypertension DM AK MIKALA Educated the patient on sleep hygiene measures. Relaxing rituals to rest easy, understanding foods with positive and negative impact on sleep, creating a peaceful sleep environment, timing of exercise, using herbal sleep aids, and practicing sleep-friendly meditation were covered. To determine how much sleep is needed, the patient will assess where dhe falls on the spectrum, examine what lifestyle factor such as stress is affecting the quality and quantity of sleep. In general, adults need 7-9 hours of sleep. Educated the patient regarding foods that promote sleep. These include but are not limited to cherries, bananas, toast, oatmeal, and warm milk. Educated the patient regarding foods and drinks to avoid before bedtime. These include but are not limited to aged cheese, chocolate, spicy foods, tomato-based sauces, soy, ginseng tea and processed meat. Advocated influenza vaccination annually and pneumonia vaccination DARIN. Advocated weight loss through diet and exercise. Patient's ideal body weight according to height and gender is up to 140 lbs. Encouraged patient to adjust caloric intake to maintain/achieve ideal body weight, emphasizing on fruits, vegetables, whole grains, and fat-free or low-fat products. These include lean meats, poultry, fish, beans, eggs, and nuts and foods that are low in saturated fats, trans-fats, cholesterol, salt (sodium), and glycemic index. Stressed the importance of regular exercise up to the patient's capacity limits. In this case, we recommend 20 min daily walking, 2 days a week of resistance training. Patient to monitor BP daily and bring records to PCP for further management. Follow-up: 3 weeks [email or web address] Not available 05/31/2025 10:21:00 Plan of Treatment Reminders Order Date Submit Date Provider Last Modified By Organization Details Last Modified Time Details Appointments None recorded. Lab iron + TIBC + ferritin, serum [address] (Lab), [address] [place], [address], 16:08:16 folate, RBC [address] [place] [address] (Lab), [address] [place], [address], 16:08:28 vitamin B12, serum [address] (Lab), [address] [place], [address], 16:08:50 ESR (erythrocyt e sedimentati on rate), blood [address] (Lab), [address] [place], [address], 16:09:12 hemoglobin + hematocrit, blood [address] (Lab), [address] [place], [address], 16:18:32 bun (blood urea nitrogen), serum or plasma 2024 025 [email or web address] [facility] (Lab), [address] [place], [address], 16:19:06 creatinine, serum or plasma 2024 025 [email or web address] [facility] (Lab), [address] [place], [address], 16:19:20 magnesium, serum or plasma 2024 025 [email or web address] [facility] (Lab), [address] [place], [address], 16:19:32 vitamin E, serum 2024 025 [email or web address] [facility] (Lab), [address] [place], [address], 16:19:46 Referral None recorded. Procedures None recorded. Surgeries None recorded. Imaging None recorded. Medication Orders None recorded. Patient TargetsNo targets recorded. Patient InstructionsNo instructions recorded. Reason for Referral None Reported. Results Created Date Observation Date Name Description Value Unit Range Abnormal Flag Note LastModifiedBy Organization Detail LastModifiedTime 05/04/2004/05/2025 polys omnog alanis, split night No observ ation record ed. [facility] ([facility]) [address] [place], [address], 05/04/2025 13:27:07 Result Notes None recorded. Problems Name Problem SNOMED Code Status Onset Date Resolution Date Notes Provider Name and Address Organization Details Recorded Time Morbid obesity 255459903 Active 2022 Geo Murrell MD [address], [place], [address] , [facility] [employer] 5 14:51:56 Osteoarthri tis of left knee joint 7367617611584 09 Active 2022 Geo Murrell MD [address], [address], [place], [address], [employer] 5 14:51:54 Osteoarthri tis of right knee joint 1820651818720 00 Active 2022 Geo Murrell MD [address], [place], [address], [employer] 5 14:51:52 Iron deficiency anemia 75929834 Active 2022 Geo Murrell MD [address], [place], [address], [employer] 5 14:52:03 Obstructive sleep apnea syndrome 51973753 Active 2024 Geo Murrell MD [address], [place], [address], [employer] 5 11:15:03 Periodic leg movements of sleep 065424992 Active 2024 Geo Murrell MD [address], [place], [address], [employer] 5 10:18:30 Notes:Medical History: Depre ssion Allergic conjunctivitis Postnasal drip Early REM onset Obesity with mod OSAHS, AHI = 23, 10/07/15 Hypertension Hyperlipidemia T2DM CAD s/p AK 2016 MIKALA Stage 3B CKD Iron deficiency anemia PLMD Vit D deficiency Lumbar radiculopathy Bilateral knee OA Procedure History: Cholecystectomy 1977 KEL 1980 Bilateral CTS release surgeries 1997 Right shoulder surgery 1999 Gastric bypass surgery 2003 3 coronary artery stents placement 2022 Colonoscopy with polypectomy 2022 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 Medical Equipment None Reported. Allergies No known drug allergies Medications Name Sig Start Date Stop Date Status Note LastModified by Organization Details LastModified Time cyclobenzap rine 10 mg tablet TAKE 1 TABLET BY MOUTH THREE TIMES DAILY FOR 14 DAYS NEEDED active Not Available Not Available No t Available fluconazole 100 mg tablet TAKE 1 TABLET BY MOUTH EVERY 72 HOURS FOR 9 DAYS 03/16 completed Not Available Not Available Not Available metformin 500 mg tablet TAKE 1 TABLET BY MOUTH TWICE DAILY active Not Available Not Available No t Available prednisone 10 mg tablet 05/26 completed Not Available Not Available Not Available atorvastati n 20 mg tablet TAKE 1 TABLET BY MOUTH EVERY DAY active Not Available Not Available No t Available fluconazole 150 mg tablet TAKE 1 TABLET BY MOUTH EVERY DAY FOR 1 DAY DIRECTED FOR YEAST INFECTION 02/28 completed Not Available Not Available Not Available metoprolol succinate ER 50 mg tablet,exte nded release 24 hr TAKE 1 TABLET BY MOUTH EVERY DAY 02/28 completed Not Available Not Available Not Available sulfamethox azole 400 mg-trimetho prim 80 mg tablet TAKE 1 TABLET BY MOUTH EVERY 12 HOURS AROUND THE CLOCK FOR 3 DAYS FOR UTI 02/27 completed Not Available Not Available Not Available hydrocodone 5 mg-acetamin ophen 325 mg tablet TAKE 1-2 TABLET BY MOUTH EVERY 6 HOURS NEEDED 02/28 completed Not Available Not Available Not Available lisinopril 20 mg tablet TK 1 T PO D 05/15 completed Not Available Not Available Not Available prednisone 20 mg tablet TAKE 3 TABLETS BY MOUTH DAILY FOR 5 DAYS 02/28 completed Not Available Not Available Not Available acetaminoph en 300 mg-codeine 30 mg tablet TAKE 1 TABLET BY MOUTH TWICE DAILY NEEDED FOR SEVERE PAIN 05/31 completed Not Available Not Available Not Available clopidogrel 75 mg tablet TAKE 1 TABLET BY MOUTH EVERY DAY active Not Available Not Available No t Available chlorthalid one 25 mg tablet TAKE 1/2 TABLET BY MOUTH EVERY MORNING active Not Available Not Available No t Available amlodipine 5 mg tablet TAKE 1 TABLET BY MOUTH EVERY DAY 02/28 completed Not Available Not Available Not Available ciprofloxac in 500 mg tablet TAKE 1 TABLET BY MOUTH TWICE DAILY 02/27 completed Not Available Not Available Not Available sulfamethox azole 800 mg-trimetho prim 160 mg tablet TAKE 1 TABLET BY MOUTH EVERY 12 HOURS AROUND THE CLOCK FOR 3 DAYS FOR UTI 02/27 completed Not Available Not Available Not Available peg-electro lyte solution 420 gram oral solution MIX AND DRINK BY MOUTH ACCORDING TO WRITTEN DIRECTION S BY PRESCRIBE R 02/28 completed Not Available Not Available Not Available aspirin 81 mg tablet,nithya yed release TK 1 T PO QD UTD 05/15 completed Not Available Not Available Not Available prednisone 10 mg tablets in a dose pack Take 1 tab by mouth, 3 times a day for 3 daysTake 1 tab by mouth 2 times a day for 2 daysTake 1 tab by mouth once a day for 1 day 05/26 completed Not Available Not Available Not Available famotidine 20 mg tablet TK 1 T PO D 05/15 completed Not Available Not Available Not Available prednisolon e acetate 1 % eye drops,suspe nsion INSTILL 1 DROP INTO SURGICAL EYE THREE TIMES DAILY STARTING 4 HOURS AFTER SURGERY AND CONTINUIN G [id number] active Not Available Not Available No t Available OneTouch Ultra Test strips USE TO TEST BLOOD SUGAR ONCE DAILY 05/04 completed Not Available Not Available Not Available Kenalog 10 mg/mL suspension for injection In office injection administe red by the provider 03/16 completed [facility]: [phone] Not Available Not Available Not Available cephalexin 500 mg capsule TAKE 1 CAPSULE BY MOUTH EVERY 8 HOURS FOR 7 DAYS 03/16 completed Not Available Not Available Not Available pantoprazol e 40 mg tablet,nithya yed release TAKE 1 TABLET BY MOUTH EVERY DAY active Not Available Not Available No t Available triamcinolo ne acetonide 0.1 % topical ointment APPLY THIN LAYER TOPICALLY TO THE AFFECTED AREA TWICE DAILY 05/26 completed Not Available Not Available Not Available lisinopril 10 mg tablet TK 1 T PO QD 05/15 completed Not Available Not Available Not Available nitroglycer in 0.[address] 1 TABLET UNDER THE TONGUE NEEDED FOR CHEST PAIN EVERY 15 MINUTES FOR UP TO 3 DOSES THEN CALL 911 active Not Available Not Available No t Available diclofenac sodium 75 mg tablet,nithya yed release TAKE 1 TABLET BY MOUTH TWICE DAILY 02/28 completed Not Available Not Available Not Available bisacodyl 5 mg tablet,nithya yed release TK ALL 6 TS PO AT 8AM ON 07-16 completed Not Available Not Available Not Available lisinopril 5 mg tablet TK 1 T PO QD 05/15 completed Not Available Not Available Not Available mupirocin 2 % topical ointment APPLY A SMALL AMOUNT TO THE AFFECTED AREA WITH CLEAN COTTON SWAB TWICE DAILY 02/28 completed Not Available Not Available Not Available metoprolol succinate ER 25 mg tablet,exte nded release 24 hr TAKE 1/2 TABLET BY MOUTH DAILY active Not Available Not Available No t Available naproxen 500 mg tablet TK 1 T PO BID PRN P 05/15 completed Not Available Not Available Not Available amoxicillin 875 mg-jenyu m clavulanate 125 mg tablet TAKE 1 TABLET BY MOUTH TWICE DAILY 03/16 completed Not Available Not Available Not Available Vitamin B-12 ER 1,000 mcg tablet,exte nded release TK 1 T PO QD UTD 05/15 completed Not Available Not Available Not Available azithromyci n 500 mg tablet TAKE 1 TABLET BY MOUTH EVERY DAY 03/16 completed Not Available Not Available Not Available Januvia 100 mg tablet TAKE 1 TABLET BY MOUTH EVERY DAY FOR DIABETES 02/28 completed Not Available Not Available Not Available Golytely 236 gram-22.74 gram-6.74 gram-5.86 gram oral solution DIRECTED 02/28 completed Not Available Not Available Not Available ropivacaine (PF) 5 mg/mL (0.5 %) injection solution Take 40 mg by injection route. 03/16 completed [facility] [phone] Not Available Not Available Not Available Farxiga 10 mg tablet TAKE 1 TABLET BY MOUTH EVERY DAY DIRECTED FOR DIABETES active Not Available Not Available No t Available Farxiga 5 mg tablet TAKE 1 TABLET BY MOUTH 1 TIME EACH DAY 03/16 completed Not Available Not Available Not Available OneTouch Ultra2 Meter USE TO TEST BLOOD SUGAR ONCE DAILY 05/04 completed Not Available Not Available Not Available OneTouch Delica Plus Lancet 33 gauge USE TO TEST ONCE DAILY 05/04 completed Not Available Not Available Not Available OneTouch Delica Plus Lancet 30 gauge USE TO TEST BLOOD SUGAR ONCE DAILY 05/04 completed Not Available Not Available Not Available Ozempic 1 mg/dose (4 mg/3 mL) subcutaneou s pen injector INJECT 1MG UNDER THE SKIN ONCE A WEEK active Not Available Not Available No t Available Ozempic 0.25 mg or 0.5 mg (2 mg/3 mL) subcutaneou s pen injector INJECT 0.5 MG UNDER THE SKIN ONCE A WEEK 05/04 completed Not Available Not Available Not Available Vitals Date Recorded Heart rate Respiratory rate Provider N ashley and Address Organization Details Last Updated DateTime 05/31/2025 84 /min 15 /min Geo Murrell MD [address], [place], [address], [facility] 05/31/2025 10:25:15 Date Recorded Body height Body mass index (BMI) Body weight Heart rate Oxygen saturation Body temperature Systolic And Diastolic Provider Name and Address Organization Details Last Updated DateTime 167.64 cm 29.5 kg/m2 52131.4 g 84 /min 98 % 98.9 [degF] 112/68 mm[Hg] Lula Gill MA [email or web address] [facility] [employer] 10:06:20 Social History Question Answer Notes LastModified by Organizat ion Details LastModified Time Tobacco Smoking Status Never Smoker Not Available [facility] 10/01/2022 14:09:11 What Is Your Level Of Caffeine Consumption? Moderate Information not available 02/28/2025 In The 14 Days Before Symptom Onset, Have You Had Close Contact With A Laboratory-confirm ed COVID-19 While That Case Was Ill? No Information n ot available 02/28/2025 In The 14 Days Before Symptom Onset, Have You Had Close Contact With A Person Who Is Under Investigation For COVID-19 While That Person Was Ill? No Information not available 02/28/2025 What Type Of Diet Are You Following? REGULAR Information n ot available 02/28/2025 Do You Have An Electrostatic Air Filter? No Information not available 02/28/2025 Do You Have A Humidifier? No Information not available 02/28/2025 Do You Have Moisture Problems In Your Home? No Information not available 02/28/2025 What Was The Date Of Your Most Recent Tobacco Screening? 05/31/2025 Information not available 05/31/2025 Do You Have Any Pets? No Information not available 02/28/2025 Do You Use Your Seat Belt Or Car Seat Routinely? Yes Information not available 02/28/2025 Do You Have Smoke And Carbon Monoxide Detectors In Your Home? Yes Information not available 02/28/2025 Are You Passively Exposed To Smoke? No Information no t available 02/28/2025 Do You Use Sunscreen Routinely? No Information not available 02/28/2025 Have You Recently Traveled Abroad? No Information not available 02/28/2025 Do You Have Any Dietary Restrictions? No Information not available 02/28/2025 Sex: Unknown Functional Status Question Answer Note LastModified by Organizat ion Details LastModified Time Do you use any illicit or recreational drugs? No Information not available 02/28/2025 Do you or have you ever used any other forms of tobacco or nicotine? No Information not available 02/28/2025 What is your level of alcohol consumption? None [id number] Information not available 10/01/2022 Are you currently employed? Retired Information not available 05/31/2025 Have you been exposed to chemicals or toxins? not that aware of Information not available 02/28/2025 Mental Status Question Answer Note LastModified by Organization D etails LastModified Time Do you feel stressed (tense, restless, nervous, or anxious, or unable to sleep at night)? [id number] Information not available 02/28/2025 Family History Relationship Description Onset Age of this Age Resolved Age Notes LastModified by Organization Details LastModified Time Mother Heart disease [id number] Not available 10/01/2022 14:09:16 Mother Diabetes mellitus [id number] Not available 10/01/2022 14:09:16 Mother Hypertensive disorder [id number] Not available 10/01/2022 14:09:17 Mother Hyperlipidem ia [id number] Not available 10/01/2022 14:09:17 Brother Diabetes mellitus [id number] Not available 10/01/2022 14:09:17 Sister Diabetes mellitus [id number] Not available 10/01/2022 14:09:17 Father Cerebrovascu lar accident [email or web address] Not available 11:33:55 Brother Obstructive sleep apnea syndrome [email or web address] Not available 2024 11:33:45 Son Chronic kidney disease [email or web address] Not available 2024 11:35:13 Medical History Condition Response HEART DISEASE/HEART PROBLEMS Y DIABETES, TYPE Y ARTHRITIS Y USE OF BLOOD THINNERS Y Gynecological HistoryNo gynecological history recorded. Obstetrics History GPAL:G 0 P 0 0 0 0 Past Encounters Encounter ID Performer Location Encounter Start Date Encounter Closed Date Diagnosis/Indication Diagnosis SNOMED-CT Code Diagnosis ICD10 Code Diagnosis IMO Codes Diagnosis Note [id number] Geo Murrell MD [facility] [address] [address] 05/31/2025 09:43:30 05/31/2025 11:56:04 Obstructive sleep apnea syndrome 33132590 G47.33 761084 Periodic l eg movements of sleep 372748741 G47.61 D50.8 E83.42 295530 Health Concerns Section Related Observation LastModified by Organization Detai ls LastModified Time None Recorded Concern Status LastModified by Organization Details LastModified Time None Recorded Payers Encounter Date Sequence Insurance Name Policy Number Policy Rosas Covered Member ID Rosas Member ID Guarantor Name 05/31/2025 1 [facility] (MEDICARE REPLACEMENT/A DVANTAGE - PPO) [id number] Belle Rivera [id number] Belle Rivera 05/31/2025 2 [place]SECONDARY PLAN WHEN MEDICARE OR MEDICARE REPLACEMENT PRIMARY) Sandra Rivera [id number] Belle Rivera Notes Date Note Type Note Provider Name and Address Organization Details Recorded Time 05/31/2025 text/html Primary care/Referring provider: Darlene Salguero MD During the [facility] split night sleep study on 10/07/15 AHI = 23, REM AHI = 60, ResMed medium wide Hawley FX Pippa nasal mask was applied @ 8 cmH2O, PLMI = 8. Patient lost her CPAP in a move. She only used it for 3 months in 2016 and had no problems with it. During the [address] split night sleep study 04/05/25, sleep onset = 2 minutes, REM onset = 22 minutes, AHI = 26, REM AHI = 50, PLMI = 52. The patient uses a ResMed AirSense 11 autoset unit with heated humidification. The patient does not need the ramp to start low and go up slowly on the pressure. There is no xerostomia in a.m. There is no hose/mask condensation with water. The patient wears a ResMed small AirTouch F20 full face mask without chin strap. There is no claustrophobia, no nostril/nose bridge irritation, no facial rash, no facial numbness, no nosebleeding. The patient feels more refreshed upon waking and daytime alertness is improved. Energy levels are sustained for the remainder of the day. At home, the patient sleeps from 7 pm to 3 am and wakes up without an alarm. Snoring: moderate, since .Snorting: noChoking: noCoughing: noGasping: noGagging: noSighing: noWitnessed apnea: yesTwitching or jerking of leg(s), arm(s), body, head: yesTeeth grinding: n/aTeeth clenching: n/aSleeptalking: noSleepwalking: noSleep crying: noBedwetting: noTongue/lip/gum/cheek biting: noSleeping with open mouth: yesSleep paralysis: noHypnagogic hallucinations: noHypnopompic hallucinations: noVivid dreams: yes, pulling cord to start weed trimmerDifficulty with sleep onset: yesDifficulty with sleep maintenance: yesSleep interruptions: nocturia x 3Patient wakes up with: fatigue, xerostomia, sore throat, headaches, mobility impairment, dexterity impairmentDaytime cataplexy: noMorning hypersomnolence: yesAfternoon hypersomnolence: yesCaffeine sources in diet: coffee 1 cup per day, soda 2.5 cans per day Associated medical and psychiatric conditions:Congestive heart failure: noCoronary artery disease: yesMyocardial infarction: yesHypertension: yesStroke: noBronchial asthma: noChronic obstructive pulmonary disease: noDepression: yesBipolar disorder: noAnxiety: noPanic disorder: noPosttraumatic stress disorder: noAttention deficit and hyperactivity disorder: noObsessive Compulsive disorder: noSchizophrenia: noSchizoaffective disorder: noPersonality disorder: noChronic analgesic use: noChronic sedative/hypnotic use: no EPWORTH SLEEPINESS SCALE (ESS) CHANCE OF DOZING SCORE0 = would never doze1 = slight chance of dozing2 = moderate chance of dozing3 = high chance of dozing SITUATION AND CHANCE OF DOZINGSitting and reading - 2Watching television - 3Sitting inactive in a public place (e.g. a theater or meeting) - 1As a passenger in a car for an hour without a break - 3Lying down to rest in the afternoon when circumstances permit - 2Sitting and talking to someone - 1Sitting quietly after lunch without alcohol - 2In a car, while stopped for a few minutes in the traffic - 1TOTAL SCORE 15Subjectively, patient has a moderate chance of dozing. Geo Murrell MD [address] [facility], [facility] [address], [place], [address], [facility] 05/31/2025 10:25:31 OBGyn Episode No OBEpisode recorded.
--- OUTSIDE RECORDS SUMMARY | 2025-07-23 14:25 | XMS_ITS | Continuity of Care Document ---
Author Organization [facility] (Adult Med) Address [address] [place] [address] Care Team Providers Care Locomotive Switch Operator Name Role Phone DARLENE SALGUERO Primary Care Provider [phone] EMEKA KENNEDY Surg Tech Assessment No assessment recorded. Plan of Treatment Reminders Order Date Submit Date Provider Last Modified By Organization Details Last Modified Time Details Appointments ANY 15 2025 10:45A Warren Salguero MD Not available Not available Not available Lab HbA1c (hemogl obin A1c), blood 2024 [facility], [address] [place] [address], [address], [place], [address], 05/29/2025 11:42:48 lipid panel, serum 2024 [facility], [address] [place] [address], [address], [place], [address], 05/29/2025 11:42:49 albumin /creati nine, mass ratio, urine 2024 025 [facility], [address] [place] [address], [address], [place], [address], 07/13/2025 14:37:41 Referral None recorde d. Procedures None recorde d. Surgeries None recorde d. Imaging XR, cervica l spine 2024 025 [facility] , [address], [place], [address], 06/27/2025 14:15:27 Medication Orders cyclobe nzaprin e 10 mg tablet 2024 [id number], [address], [place], [id number], 05/29/2025 11:40:18 Patient TargetsNo targets recorded. Patient Instructions Encounter Date Encounter Id Patient Instructions Last Modified By Organization Details Last Modified Time 05/29/2025 [id number] neck pain: care instructions oajao Not available [...] Not available 05/29/2025 11:42:52 Reason for Referral None Reported. Results Created Date Observation Date Name Description Value Unit Range Abnormal Flag Note LastModifiedBy Organization Detail LastModifiedTime 05/01/2004/05/2025 sleep study , diagn ostic (PROC ) No observ ation record ed. [facility] [address], [place], [address], 05/29/2025 11:34:15 Result Notes None recorded. Problems Name Problem SNOMED Code Status Onset Date Resolution Date Notes Provider Name and Address Organization Details Recorded Time Coronary atherosc lerosis 466151609 Active Darlene Salguero MD Attn: Accounting ,[address] [facility], [place], [address] , [facility] 4 12:52:31 Chest pain 10517370 Active Not Available [facility] 3 14:53:08 Diabetes mellitus 30221800 Active Not Available [facility] 3 14:53:08 Cramp 09609296 Active Not Available [facility] 3 14:53:08 Pain of shoulder region 85468073 Active Not Available [facility] 3 14:53:08 Tobacco user 356386278 Active Not Available [facility] 3 14:53:08 Obstruct josef sleep apnea syndrome 28448186 Active Not Available [facility] 3 14:53:08 Benign hyperten aneta 91178024 Active Not Available [facility] 3 14:53:08 Heel pain 8118955 Active Not Available [facility] 3 14:53:08 Depressi ve disorder 04378658 Active Not Available [facility] 3 14:53:08 Tobacco dependen ce syndrome 77666572 Active Not Available [facility] 3 14:53:08 Obesity 741148558 Active 2013 Not Available [facility] 3 14:53:08 [facility]entia [facility] hyperten aneta 57848536 Active 2013 Not Available [facility] 3 14:53:08 Coronary arterios clerosis 45146223 Active 2016 Not Available [facility] 3 14:53:08 Musculos keletal pain 018093939 Active 2016 Not Available [facility] 3 14:53:08 Polyp of colon 51584289 Active 2017 Not Available [facility] 3 14:53:08 Low back pain 442919813 Active 2017 Not Available [facility] 3 14:53:08 Degenera tive spondylo listhesi s 0882346 Active 2017 Thoracic and Lumbar spine Not Available [facility] 3 14:53:08 Renal insuffic iency 386580120 Active 2017 Not Available [facility] 3 14:53:08 Immuniza tion refused Active 2017 Not Available [facility] 3 14:53:08 History of placemen t of stent for coronary artery disease 496574766 Active 2017 Not Available [facility] 3 14:53:08 History of polyp of colon 269733708 Active 2018 Not Available [facility] 3 14:53:08 History of bariatri c surgical procedur e 072770694 Active 2018 Not Available [facility] 3 14:53:08 Osteoart hritis of knee 579928217 Active 2018 Not Available [facility] 3 14:53:08 Osteoart hritis of joint of hand 04428695 Active 2018 Not Available [facility] 3 14:53:08 Trigger finger of right hand 48526252320 064612 Active 2018 Not Available [facility] 3 14:53:08 Lumbar radiculo melody 601717503 Active 2018 Not Available [facility] 3 14:53:08 Stenosis of interver tebral foramina 66026538300 9 Active 2019 Not Available [facility] 3 14:53:08 Chronic back pain 609699098 Active 2019 Not Available [facility] 3 14:53:08 Influenz a vaccinat ion declined 187553120 Active 2019 Not Available [facility] 3 14:53:08 Chronic anemia 506152543 Active 2019 Not Available [facility] 3 14:53:08 Degenera tion of lumbar interver tebral disc 78291716 Active 2020 Not Available [facility] 3 14:53:08 Vitamin D deficien cy 40250888 Active 2020 Not Available [facility] 3 14:53:08 Osteoart hritis 722684840 Active 2020 Not Available [facility] 3 14:53:08 Dysthymi a 81955207 Active 2020 Not Available [facility] 3 14:53:08 Hyperkal emia 17187122 Completed 202002/28/2021 Darlene Salguero MD Attn: Accounting ,[address] [facility], [place], [address] , [facility] 4 12:52:15 Type 2 diabetes mellitus without complica tion 044303776 Completed 202002/28/2021 Darlene Salguero MD Attn: Accounting ,[address] [facility], [place], [address] , [facility] 4 12:52:15 SARS-CoV -2 vaccinat ion declined 2390714899 Active 2022 Not Available [facility] 3 14:53:08 Chronic insomnia 950152257 Active 2024 Darlene Salguero MD Attn: Accounting ,[address] [facility], [place], [address] , [facility] 5 11:29:21 Chronic kidney disease stage 3B 939461680 Active 2024 Darlene Salguero MD Attn: Accounting ,[address] [facility], [place], [address] , [facility] 5 11:48:05 Notes:Some problems listed i n Documents: #[id number], #[id number], #[id number], #[id number], #[id number], #[id number], #[id number], #[id number], #[id number] could not be added to this patient's chart. Please review these documents and add these problems to the patient's chart manually as needed. Problem Notes None recorded. Procedures Surgical History Date Name Laterality Status Provider Name and Address Organization Details Recorded Time 02/28/20 25 Diabetic Foot Exam completed Darlene Salguero MD Attn: Accounting, [address] [facility], [place], [address], [facility] 02/27/2025 11:51:40 01/18/20 24 Diabetic Foot Exam completed Darlene Salguero MD Attn: Accounting, [address] [facility], [place], [address], [place] [facility] 01/18/2024 13:41:10 04/13/20 23 colonoscopy completed Darlene Salguero MD Attn: Accounting, [address] [place], [address], [place] [facility] 04/13/2023 14:20:12 01/31/20 21 Colonoscopy completed Darlene Salguero MD Attn: Accounting, [address] [facility], [place], [address], [place] [facility] 02/05/2021 13:15:32 09/14/19 19 colonoscopy completed Darlene Salguero MD Attn: Accounting, [address] [place], [address], [place] [facility] 03/30/2020 15:22:55 Total hysterectomy completed Kj Salguero MD Attn: Accounting, [address] [place], [address], [place] [facility] 04/01/2017 13:07:54 Gastric Bypass completed Darlene Salguero MD Attn: Accounting, [address] [place], [address], [place] [facility] 07/24/2015 16:49:15 Cholecystectomy completed Darlene Salguero MD Attn: Accounting, [address] [place], [address], [place] [facility] 07/24/2015 16:49:15 Hysterectomy completed Darlene Salguero MD Attn: Accounting, [address] [place], [address], [place] [facility] 07/24/2015 16:49:47 Other completed Darlene Salguero MD Attn: Accounting, [address] [place], [address], [place] [facility] 07/24/2015 16:49:47 Imaging Results None recorded. Procedure Notes None recorded. Medical Equipment None Reported. Allergies Allergen ID Allergen Name Allergen Category Reaction Reaction Severity Criticality Documentation Date Start Date Code Code System Note Provider Name and Address Organization Details Recorded Time 494726 No known allergy (situatio n) Not available Not available Not available Not available 07/22/2021 37958 6009 SNOMED Darlene Salguero MD Attn: Len valverde,[address], [place], [address], [facility] 12:23:49 No known drug allergies Medications Name [...] 4 HOURS AFTER SURGERY AND CONTINUI NG L1CASSO active Not Available Not Available No t [...] Take 1 {capsule } by oral route. 08/15 completed Not Available Not Available Not [...] THE SKIN ONCE A WEEK 03/10 completed Duplicat e entry Not Available Not Available Not [...] Updated DateTime 5 167.64 cm 29.9 kg/m2 92974.5 9 g 12 /min 98.3 [degF] 82 /min 99 % 130/74 mm[Hg] Allyson Melendez MA [place] [facility] 5 11:24:39 Social History Question Answer Notes LastModified by Organizat ion Details LastModified Time Tobacco Smoking Status Former Smoker Quit 08/04/16 Oneyda Paz LPN null, [place] [facility] 10/13/2016 10:16:35 Do You Have An Advance [...] available 2014 15:55:50 Medical History Condition Response Diabetes Y Acid Reflux (GERD) Y High Blood Pressure Y Gynecological HistoryNo gynecological history recorded. Obstetrics History GPAL:G 0 P 0 0 0 0 Immunizations Vaccine Type Date Status Note Provider Nam e and Address Organization Details Recorded Time COVID-19, mRNA, LNP-S, PF, 30 mcg/0.3 mL dose, yumiko-sucrose 2 completed Not Available [facility] 06/16/2023 11:54:39 COVID-19, mRNA, LNP-S, PF, 30 mcg/0.3 mL dose 1 completed Not Available [facility] 06/16/2023 11:54:39 COVID-19, mRNA, LNP-S, PF, 30 mcg/0.3 mL dose 1 completed Not Available [facility] 06/16/2023 11:54:39 Tdap 7 completed Not Available [facility] 08/20/2019 02:34:49 Influenza, split virus, quadrivalent, preservative 8 completed Not Available [facility] 08/20/2019 02:34:52 Influenza, split virus, quadrivalent, PF 8 completed Not Available [facility] 08/20/2019 02:36:24 Tdap 6 completed Not Available [facility] 06/16/2023 11:54:40 Past Encounters Encounter ID Performer Location Encounter Start Date Encounter Closed Date Diagnosis/Indication Diagnosis SNOMED-CT Code Diagnosis ICD10 Code Diagnosis IMO Codes Diagnosis Note [id number] Darlene Salguero MD [facility] [address] [place] [address] 05/29/2025 11:08:46 05/30/2025 12:02:51 Adult health examination 600334269 Z00.00 Health Risk Assessment collected and reviewed Musculoskeletal pain 279 909788 M79.10 Acute or PRN use onlyDiscus sed Note from 02/20/2025I LPMP reviewed, last RF was on 01/23/2025. UDS 07/11/2024 Her CDA is current, 07/13/2024 Opiate patient education leaflet was previously provided Continue Tyl #3 to be used PRN onlyShe has been to physical therapy 05/26/2022 and was referred to pain management UDS and CDA needed Neck pain 24241160 M54.2 56088 Diabetes mellitus 687252 09 E11.9 HBA1C 6.2% on 02/09/2025, 6.4% on 05/26/2024 Health Concerns Section Related Observation LastModified by Organization Detai ls LastModified Time None Recorded Concern Status LastModified by Organization Details LastModified Time None Recorded Payers Encounter Date Sequence Insurance Name Policy Number Policy Rosas Covered Member ID Rosas Member ID Guarantor Name 05/29/2025 1 [facility] (MEDICARE REPLACEMENT/A DVANTAGE - PPO) [id number] Belle Rivera [id number] Belle Rivera 05/29/2025 2 [place]CON[place] WHEN MEDICARE OR MEDICARE REPLACEMENT PRIMARY) Sandra Rivera [id number] Belle Rivera Notes Date Note Type Note Provider Name and Address Organization Details Recorded Time 05/29/2025 text/html MAW 2Reported by PatientSocial/Behavior al HistoryFor fracture risk, patient reportsprevious musculoskeletal injuries. [...] her lower neck. Darlene Salguero MD Attn: Accounting,[address] [facility], [place], [address], [facility] 05/29/2025 12:25:55 OBGyn Episode No OBEpisode recorded.
--- OUTSIDE RECORDS SUMMARY | 2025-07-23 14:25 | XMS_ITS | Clinical Summary ---
Author Organization [facility] , [facility] Address [address] [facility] [address] [place] [address] Phone Care Team Providers Care Duplicating Machine Mechanic Name Role Phone Unavailable Primary Care Provider [...] 01/17/2014 Overview (02/28/2021): CCM Enroll Obesity 01/17/2014 Family History Medical History Relation Comments Hypertension [...] Care Team (Late st Contact Info) Description 09/05/2025 10:45 AM HEALTH AND SAFETY INSTRUCTOR Office Visit [facility], [facility] [address] [facility] [address] [place] [address] Reinaldo Broderick MD [address] [facility] [address] [place] [address] Health Maintenance Due Date Last [...] Procedure Name Priority Date/Time Associated Diagnosis Comments HEMOGLOBIN A1C Routine 10/27/2024 10:00 AM CDT from Last 3 Months or Most Recently Relevant to Health Maintenance Results * (ABNORMAL) Hemoglobin A1c (10/27/2024 10:00 AM CDT) Hemoglobin A1C 6.2(H) <5.7 % of total Hgb [facility] Comment: For someone without known diabetes, [...] CDT 10/27/2024 10:02 AM CDT Narrative [facility] - 10/28/2024 10:54 AM CDT FASTING:YES FASTING: YES Resulting Agency Comment Performing Organization Information: Site ID: [facility] Address: [address] [phone] Director: Neville Ron Reinaldo Broderick MD LAB BLOOD ORDERABLES Final R esult [facility] [address] [phone] from Last 3 Months or Most Recently Relevant to Health Maintenance Insurance Medicaid [place] UHC Medicare
--- OUTSIDE RECORDS SUMMARY | 2025-07-23 14:25 | XMS_ITS | Encounter Summary ---
Author Organization [facility] [employer] [facility] Address Veronika MITCHELL NIGEL [address] [address] Phone Care Team Providers Care Shower Enclosure Installer Name Role Phone Unavailable Primary Care Provider Unavailabl e Reason for Visit * Reason Comments Med Refill Encounter Details Date Type Department Care Team (Late st Contact Info) Description 02/17/2023 Refill [facility] [address] [facility] [address] [place] [address] Reinaldo Broderick MD [address] [facility] [address] [place] [address] Social History Tobacco Use Types [...] Department Care Team (Late Contact Info) Description 09/05/2025 10:45 AM COORDINATOR OF HEALTH SERVICES Office Visit [facility] [address] [facility] [address] [place] [address] Reinaldo Broderick MD [address] [facility] [address] [place] [address] documented as of this encounter Visit Diagnoses Not on filedocumented in this encounter
--- OUTSIDE RECORDS SUMMARY | 2025-07-23 14:25 | XMS_ITS | Data Portability ---
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 Name Role Phone JOSE M DARLENE Referring Provider Assessment Encounter Date Assessment Date Assessment LastModified by Organization Details LastModified Time 02/28/2025 02/28/2025 Assessment: Moderate OSAHS, AHI = 23 PLMD Hypoventilation Plan: The following were reviewed and explained to the patient: primary care/referral note [facility] split night sleep study 10/07/15 AHI = 23, REM AHI = 60, ResMed medium wide Hawley FX Pippa nasal mask @ 8 cmH2O, PLMI = 8 General information on sleep disordered breathing, evaluation of sleep disordered breathing, treatment with PAP therapy, and living with PAP therapy were covered. Chapter 1 of educational DVD was shown. PSG is medically necessary to determine the degree of and management of sleep apnea. We discussed with the patient the impact of weight on: Sleep disordered breathing Hypertension Hyperlipidemia DM CAD MIKALA CKD Lumbar radiculopathy Bilateral knee OA We discussed with the patient the benefit of PAP therapy on: Sleep disordered breathing Depression Postnasal drip Hypertension DM SC MIKALA Educated the patient on sleep hygiene [...] records to PCP for further management. Follow-up: 1 week after split night sleep study Not available 02/28/2025 11:32:44 05/31/2025 05/31/2025 Assessment: Rhinitis Moderate OSAHS, AHI = 26 PLMD Plan: The following were reviewed and explained to the patient: [facility] split night sleep study 10/07/15 AHI = [...] disordered breathing Depression Postnasal drip Hypertension DM SC MIKALA Educated the patient on sleep hygiene [...] PCP for further management. Follow-up: 3 weeks Not available 05/31/2025 10:21:00 Plan of Treatment Reminders Order Date Submit Date Provider Last Modified By Organization Details Last Modified Time Details Appointments None recorded. Lab iron + TIBC + ferritin, serum 2024 025 [email or web address] 82 [facility] (Lab), [address] [place], [address], 16:08:16 folate, RBC 2024 025 [email or web address] 82 [facility] (Lab), [address] [place], [address], 16:08:28 vitamin B12, serum 2024 025 [email or web address] (Lab), [address] [place], [address], 16:08:50 ESR (erythrocyt e sedimentati on rate), blood 2024 025 [email or web address] 82 [facility] (Lab), [address] [place], [address], 16:09:12 hemoglobin + hematocrit, blood 2024 025 [email or web address] 82 [facility] (Lab), [address] [place], [address], 5 16:18:32 bun (blood urea nitrogen), serum or plasma [address] (Lab), [address] [place], [address], 5 16:19:06 creatinine, serum or plasma [address] (Lab), [address] [place], [address], 5 16:19:20 magnesium, serum or plasma [address] (Lab), [address] [place], [address], 5 16:19:32 vitamin E, serum [address] (Lab), [address] [place], [address], 16:19:46 Referral None recorded. Procedures upper endoscopy procedure (EGD) (PROC) 2022 023 [facility] (Pre-Screen), [address] [place], [address], 3 12:28:41 colonoscopy procedure (PROC) 2022 023 [facility] (Pre-Screen), [address] [place], [address], 3 12:29:03 Surgeries None recorded. Imaging polysomnogr am, split night - Please call patient to schedule. 2024 025 [email or web address] [facility] ([facility] [address] [place], [address], 5 12:10:02 Medication Orders Golytely 236 gram-22.74 gram-6.74 gram-5.86 gram oral solution 2022 023 [id number], [address] [place], [place], [id number], 11:08:07 Patient TargetsNo targets recorded. Patient Instructions Encounter Date Encounter Id Patient Instructions Last Modified By Organization Details Last Modified Time 03/18/2023 [id number] Thomas [email or web address] Not available 13:51:41 PT WITH KENIA. DDX ; PUD/GASTRITIS /AVM/POLYP /COLITIS/CA. RECOMMEND EGD/ COLONOSCOPY. . Risks benefits and complications were explained to the pt. ( BLEEDING PERFORATION , INFECTION , ). PT VERBALIZES UNDERSTANDING AND IS WILLING TO PROCEDE . [email or web address] Not available 03/18/2023 13:51:56 Reason for Referral None Reported. Results Created Date Observation Date Name Description Value Unit Range Abnormal Flag Note LastModifiedBy Organization Detail LastModifiedTime 08/28/19 23 XR, knee, 3 view No observ ation record ed. [id number] [address], [place], [address], 10/01/2022 14:11:33 04/13/20 23 04/13/2023 upper endos copy proce dure (EGD) (PROC ) No observ ation record ed. [email or web address] [facility] (Pre-Screen) [address] [place], [address], 04/13/2023 12:28:41 04/13/20 23 04/13/2023 colon oscop y proce dure (PROC ) No observ ation record ed. [email or web address] [facility] (Pre-Screen) [address] [place], [address], 04/13/2023 12:29:03 05/04/20 25 04/05/2025 polys omnog alanis, split night No observ ation record ed. [email or web address] [facility] ([facility]) [address] [place], [address], 05/04/2025 13:27:07 Result Notes None recorded. Problems Name Problem SNOMED Code Status Onset Date Resolution Date Notes Provider Name and Address Organization Details Recorded Time Morbid obesity 873924219 Active 2022 Geo Murrell MD [address], [place], [address], [employer] 5 14:51:56 Osteoarthri tis of left knee joint 3145603702580 09 Active 2022 Geo Murrell MD [address], [place], [address], [employer] 5 14:51:54 Osteoarthri tis of right knee joint 0424217031827 00 Active 2022 Geo Murrell MD [address], [place], [address], [employer] 5 14:51:52 Iron deficiency anemia 96568924 Active 2022 Geo Murrell MD [address], [address], [place], [address], [employer] 5 14:52:03 Obstructive sleep apnea syndrome 34352559 Active 2024 Geo Murrell MD [address], [place], [address], [employer] 5 11:15:03 Periodic leg movements of sleep 322852937 Active 2024 Geo Murrell MD [address], [place], [address], [employer] 10:18:30 Notes:Medical History: Depre ssion Allergic conjunctivitis Postnasal drip Early REM onset Obesity with mod OSAHS, AHI = 23, 10/07/15 Hypertension Hyperlipidemia T2DM CAD s/p SC 2017 MIKALA Stage 3B CKD Iron deficiency anemia PLMD Vit D deficiency Lumbar radiculopathy Bilateral knee OA Procedure History: Cholecystectomy 1976 KEL 1979 Bilateral CTS release surgeries 1998 Right shoulder surgery 1999 Gastric bypass surgery 2004 3 coronary artery stents placement 2022 Colonoscopy [...] 4 HOURS AFTER SURGERY AND CONTINUIN G [id number] active Not Available Not Available No t Available OneTouch Ultra Test strips USE TO TEST BLOOD SUGAR ONCE DAILY 05/04 completed Not Available Not Available Not Available Kenalog 10 mg/mL suspension for injection In office injection administe red by the provider 03/16 completed [facility]: 0003- 0494- 20 Not Available Not Available [...] Available Not Available Not Available amoxicillin 875 mg-potassiu m clavulanate 125 mg tablet TAKE 1 [...] 40 mg by injection route. 03/16 completed [facility] 17950 -064- 01 Not Available Not Available Not [...] Available Not Available Vitals Date Recorded Body mass index (BMI) Body height Body weight Provider Name and Address Organization Details Last Updated DateTime 08/28/2022 40.4 kg/m2 167.64 cm 387416.09 g Not Available [facility] 10/01/2022 14:09:20 Date Recorded Body height Provider Name an d Address Organization Details Last Updated DateTime 12/27/2020 167.64 cm Not Available [facility] 3 14:09:19 Date Recorded Body weight Heart rate Body mass index (BMI) Heart rate Respiratory rate Provider Name and Address Organization Details Last Updated DateTime 02/28/2025 89713.22 g 73 /min 29.2 kg/m2 73 /min 15 /min Geo Murrell MD [address], [address] , [facility] [employer] [facility] 5 11:14:03 Date Recorded Body temperature Oxygen saturation Body height Systolic And Diastolic Provider Name and Address Organization Details Last Updated DateTime 02/28/2025 98.2 [degF] 97 % 167.64 cm 104/60 mm[Hg] Lula Gill MA [facility] [employer] 5 11:12:30 Date Recorded Body height Body weight Heart rate Oxygen saturation Systolic And Diastolic Provider Name and Address Organization Details Last Updated DateTime 03/18/2023 167.64 cm 73195.32 g 96 /min 96 % 128/66 mm[Hg] JOSE L Granados [facility] [employer] [facility] 3 13:51:12 Date Recorded Heart rate Respiratory rate Provider N ashley and Address Organization Details Last Updated DateTime 05/31/2025 84 /min 15 /min Geo Murrell MD [address] [facility] [address], [place], [address], [employer] 05/31/2025 10:25:15 Date Recorded Body height Body mass index (BMI) Body weight Heart rate Oxygen saturation Body temperature Systolic And Diastolic Provider Name and Address Organization Details Last Updated DateTime 167.64 cm 29.5 kg/m2 71141.4 g 84 /min 98 % 98.9 [degF] 112/68 mm[Hg] Lula Gill MA [employer] [facility] 10:06:20 Social History Question Answer Notes LastModified by Organizat ion Details LastModified Time Tobacco Smoking Status Never Smoker Not Available [facility] 10/01/2022 14:09:11 What Is Your Level [...] is your level of alcohol consumption? None [id number] Information not available 10/01/2022 Are you currently employed? Retired Information not available 05/31/2025 Have you been exposed to chemicals or toxins? not that aware of Information not available 02/28/2025 Mental Status Question Answer Note LastModified by Organization D etails LastModified Time Do you feel stressed (tense, restless, nervous, or anxious, or unable to sleep at night)? [id number] Information not available 02/28/2025 Family History Relationship Description Onset Age of this Age Resolved Age Notes LastModified by Organization Details LastModified Time Mother Heart disease [id number] Not available 10/01/2022 14:09:16 Mother Diabetes mellitus [id number] Not available 10/01/2022 14:09:16 Mother Hypertensive disorder [id number] Not available 10/01/2022 14:09:17 Mother Hyperlipidem ia [id number] Not available 10/01/2022 14:09:17 Brother Diabetes mellitus [id number] Not available 10/01/2022 14:09:17 Sister Diabetes mellitus [id number] Not available 10/01/2022 14:09:17 Father Cerebrovascu lar accident [email or web address] Not available 11:33:55 Brother Obstructive sleep apnea syndrome [email or web address] Not available 2024 11:33:45 Son Chronic kidney disease [email or web address] Not available 2024 11:35:13 Medical History Condition Response ARTHRITIS Y USE OF BLOOD THINNERS Y DIABETES, TYPE Y HEART DISEASE/HEART PROBLEMS Y Gynecological HistoryNo gynecological history recorded. Obstetrics History GPAL:G 0 P 0 0 0 0 Past Encounters Encounter ID Performer Location Encounter Start Date Encounter Closed Date Diagnosis/Indication Diagnosis SNOMED-CT Code Diagnosis ICD10 Code Diagnosis IMO Codes Diagnosis Note [id number] Wallace Rogers MD [facility] [address] [facility] [address] [place] [address] 12/27/2020 00:00:00 12/27/2020 11:43:36 [id number] Wallace Rogers MD [facility] [address] [facility] [address] [place] [address] 08/28/2022 00:00:00 08/28/2022 10:33:04 [id number] Yolande Hodgson MD [facility] General Surgery [address] [place] [address] 03/18/2023 13:46:41 03/18/2023 14:25:38 Iron deficiency anemia 54494469 D50.9 [id number] Geo Murrell MD [address] [address] 02/28/2025 10:35:33 03/06/2025 16:37:32 Obstructive sleep apnea syndrome 84376352 G47.33 G47.30 R06.89 G47.61 [id number] Geo Murrell MD [place] [address] 05/31/2025 09:43:30 05/31/2025 11:56:04 Obstructive sleep apnea syndrome 10311041 G47.33 114593 Periodic l eg movements of sleep 840011705 G47.61 D50.8 E83.42 602095 Health Concerns Section Related Observation LastModified by Organization Detai ls LastModified Time None Recorded Concern Status LastModified by Organization Details LastModified Time None Recorded Advance Directives Directive None Recorded Payers Insurance Date Sequence Insurance Name Policy Number Policy Rosas Covered Member ID Rosas Member ID Guarantor Name 02/28/2025 1 [facility] (MEDICARE REPLACEMENT/A DVANTAGE - HMO) [id number] Belle Rivera [id number] Belle Rivera 02/28/2025 1 [place]MENT [place] Sandra Rivera [id number] Belle Rivera 06/18/2025 [facility] - DOS ON OR AFTER 21 (MEDICAID REPLACEMENT - HMO) [id number] Sandra Rivera [id number] Belle Rivera 06/18/2025 1 [facility] (MEDICARE REPLACEMENT/A DVANTAGE - PPO) [id number] Belle Rivera [id number] Belle Rivera 06/18/2025 2 [place] WHEN MEDICARE OR MEDICARE REPLACEMENT PRIMARY) Sandra Rivera [id number] Belle Rivera 02/28/2025 3 [place] Belle Rivera [id number] Belle Rivera Notes Date Note Type Note Provider Name and Address Organization Details Recorded Time 03/18/2023 text/html ROS as noted in the HPI BELLE WAS SEEN IN THE OFFICE TODAY FOR KENIA. PT ADMITS TO SOB/ TIREDNESS /FATIGUE . PT DENIES BLACK/ RED STOOL . LABS : HB 8.3, MCV 90, PLTS 377, MCH 26 , VIT B 12 168 (L) , FE 58, UIBC 297, TIBC 355 , SAT 16 %. Yolande Hodgson MD [address] [place] [address], [address], [facility] [employer] 03/18/2023 14:23:19 02/28/2025 text/html Primary care/Referring provider: Darlene Deshpande MD CC: I lost my CPAP in the move. I only used it for 3 months in 2016 and I had no problems with it. During the [facility] split night sleep study on 10/07/15 AHI = 23, REM AHI = 60, ResMed medium wide Hawley FX Pippa nasal mask was applied @ 8 cmH2O, PLMI = 8. At home, the patient sleeps from 7 [...] place (e.g. a theater or meeting) - 3As a passenger in a car for an hour without a break - 3Lying down to rest in the afternoon when circumstances permit - 2Sitting and talking to someone - 1Sitting quietly after lunch without alcohol - 3In a car, while stopped for a few minutes in the traffic - 1TOTAL SCORE 18Subjectively, patient has a high chance of dozing. Geo Murrell MD [address] [place] [address], [place] [address], [place], [address] [place] [facility] 02/28/2025 11:41:44 05/31/2025 text/html Primary care/Referring provider: Darlene Deshpande MD During the [facility] split night sleep study on 10/07/15 AHI = 23, REM AHI = 60, ResMed medium wide Hawley FX Pippa nasal mask was applied @ 8 cmH2O, PLMI = 8. Patient lost her CPAP in a move. She only used it for 3 months in 2016 and had no problems with it. During the [place] split night sleep study 04/05/25, sleep onset [...] chance of dozing. Geo Murrell MD [address] [facility], [facility] [address], [place], [address], [facility] 05/31/2025 10:25:31 OBGyn Episode No OBEpisode recorded.
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
== END 2025-07-23 15:01 | disposition home or self-care (01) ==
PROVIDERS: Emergency Provider Physician Assistant; PCP Internal Medicine Infectious Disease
DX: S16.1XXA Strain of muscle, fascia and tendon at neck level, initial encounter (principal); S09.90XA Unspecified injury of head, initial encounter; I25.10 Atherosclerotic heart disease of native coronary artery without angina pectoris; I12.9 Hypertensive chronic kidney disease with stage 1 through stage 4 chronic kidney disease, or unspecified chronic kidney disease; E11.22 Type 2 diabetes mellitus with diabetic chronic kidney disease; N18.30 Chronic kidney disease, stage 3 unspecified; E78.5 Hyperlipidemia, unspecified; Z87.891 Personal history of nicotine dependence; V89.2XXA Person injured in unspecified motor-vehicle accident, traffic, initial encounter
CPT/HCPCS: 70450; 72125; 99284